=== PATIENT | female | born 1980 | race Caucasian/White ===

== ENCOUNTER → 2018-05-15 12:52 | Outpatient (CLI) | payer BC, SELFPAY ==
--- NOTE | 2018-05-15 13:00 | XR_ITS ---
XR chest 2V HISTORY: ITS.REASON: RECURRENT RESPIRATORY INFECTION ORDERING PHYSICIAN: Davon Garcia MD PATIENT AGE: 37 years COMPARISON: None FINDINGS: The cardiomediastinal silhouette and pulmonary vascularity are within normal limits. The lungs are clear without infiltrates, suspicious nodules, or pleural effusions. Breast implants are noted. No acute bony abnormalities. IMPRESSION: Negative chest, no acute finding
[2018-05-15 14:03] LABS: Basophils % 0.5 % (0.1-2.0); Eosinophils # 0.3 K/mm3 (0.0-0.4); Eosinophils % 3.1 % (0.1-12.0); Hemoglobin 13.6 g/dL (12.2-16.2); Lymphocytes # 1.4 K/mm3 (0.7-4.5); Lymphocytes % 17.2 K/mm3 (10-50); Mean Corpuscular HGB Conc 31.8 g/dL (31.8-35.4); Mean Corpuscular Hemoglobin 30.6 pg (27.0-31.2); Mean Corpuscular Volume 96.3 fl (81-99); Mean Platelet Volume 6.7 fl (7.4-10.4); Monocytes # 0.6 K/mm3 (0.1-1.0); Monocytes % 6.6 % (1.7-9.3); Neutrophils # 6.1 K/mm3 (1.8-7.8); Neutrophils % 72.6 % (37.0-80.0); Platelet Count 411 K/mm3 (142-424); Red Blood Count 4.46 M/mm3 (4.20-5.40); Red Cell Distribution Width 12.4 % (11.5-17.5); White Blood Count 8.4 K/mm3 (4.8-10.8)
[2018-05-15 15:51] LABS: Alanine Aminotransferase 23 U/L (12-78); Albumin Level 3.7 gm/dL (3.4-5.0); Albumin/Globulin Ratio 1.2 (1.1-1.8); Alkaline Phosphatase 87 U/L (46-116); Anion Gap 13.6 mEq/L (5-15); Aspartate Amino Transferase 12 U/L (15-37); Bilirubin,Total 0.3 mg/dL (0.2-1.0); Blood Urea Nitrogen 8 mg/dL (7-18); Calcium 8.6 mg/dL (8.5-10.1); Carbon Dioxide 27 mmol/L (21.0-32.0); Chloride 106 mmol/L (98-107); Creatinine,Serum 0.85 mg/dL (0.55-1.02); Estimated Glomerular Filt Rate 74 ml/min (>60); GFR (African American) 90 ML/MIN (>60); Glucose 77 mg/dL (74-106); Potassium 4.6 mmoL/L (3.5-5.1); Sodium 142 mmol/L (136-145); T4 (Thyroxine) 5.7 ug/dl (4.7-13.3); Thyroid Stimulating Hormone 1.91 uIU/ml (0.358-3.740); Total Protein,Serum 6.7 gm/dL (6.4-8.2); Triiodothryronine (T3) Uptake 35 % (31-39)
[2018-05-17 13:21] LABS: FSH 11.2 mIU/mL (.); LH 5.1 mIU/mL (.)
== END ==
PROVIDERS: PCP Internal Medicine Adolescent Medicine; Visit Provider Internal Medicine Adolescent Medicine
DX: J98.8 Other specified respiratory disorders (principal)
CPT/HCPCS: 36415; 71046; 80053; 83001; 83002; 84436; 84443; 84479; 85025

== ENCOUNTER → 2018-05-24 14:26 | Outpatient (CLI) | payer BC, SELFPAY ==
--- NOTE | 2018-05-24 14:34 | XR_ITS ---
XR clavicle LT CLINICAL INDICATION: ITS.REASON: LEFT CLAVICLE PAIN ORDERING PHYSICIAN: Davon Garcia MD PATIENT AGE: 37 years Comparison: None FINDINGS: No bony or joint abnormality evident. No fracture or dislocation. No lytic or blastic change IMPRESSION: Negative left clavicle
== END ==
PROVIDERS: PCP Internal Medicine Adolescent Medicine; Visit Provider Internal Medicine Adolescent Medicine
DX: M89.8X1 Other specified disorders of bone, shoulder (principal)
CPT/HCPCS: 73000

== ENCOUNTER → 2019-02-13 13:06 | Outpatient (CLI) | payer BC, SELFPAY ==
[2019-02-13 13:39] LABS: Basophils % 0.6 % (0.1-2.0); Eosinophils # 0.3 K/mm3 (0.0-0.4); Eosinophils % 3.6 % (0.1-12.0); Hematocrit 43.1 % (37.0-47.0); Hemoglobin 14.6 g/dL (12.2-16.2); Lymphocytes # 1.7 K/mm3 (0.7-4.5); Mean Corpuscular HGB Conc 33.9 g/dL (31.8-35.4); Mean Corpuscular Volume 91.5 fl (81-99); Mean Platelet Volume 6.7 fl (7.4-10.4); Monocytes # 0.5 K/mm3 (0.1-1.0); Monocytes % 6.3 % (1.7-9.3); Neutrophils % 66.6 % (37.0-80.0); Platelet Count 393 K/mm3 (142-424); Red Blood Count 4.72 M/mm3 (4.20-5.40); Red Cell Distribution Width 12.3 % (11.5-17.5); White Blood Count 7.4 K/mm3 (4.8-10.8)
[2019-02-13 13:46] LABS: Glucose,Fasting 126 mg/dL (60-105)
[2019-02-13 14:17] LABS: Hemoglobin A1C 5.1 % (0.0-7.0)
[2019-02-13 15:14] LABS: Glucose 1 Hour 168 mg/dL (74-106)
[2019-02-13 15:26] LABS: Anion Gap 13.1 mEq/L (5-15); Blood Urea Nitrogen 10 mg/dL (7-18); Carbon Dioxide 29 mmol/L (21.0-32.0); Chloride 103 mmol/L (98-107); Creatinine,Serum 0.82 mg/dL (0.55-1.02); Estimated Glomerular Filt Rate 77 ml/min (>60); Free Thyroxine Index 1.6 ug/dL (5.93-13.13); GFR (African American) 93 ML/MIN (>60); Glucose 122 mg/dL (74-106); Potassium 4.1 mmoL/L (3.5-5.1); Sodium 141 mmol/L (136-145); T4 (Thyroxine) 4.8 ug/dl (4.7-13.3); Thyroid Stimulating Hormone 2.83 uIU/ml (0.358-3.740); Triiodothryronine (T3) Uptake 33 % (31-39)
[2019-02-13 16:01] LABS: HCG Qualitative, Serum Negative (Negative)
[2019-02-13 16:12] LABS: Glucose 2 Hour 141 mg/dL (74-106)
[2019-02-13 17:15] LABS: Glucose 3 Hour 121 mg/dL (74-106)
[2019-02-13 17:55] LABS: Glucose 4 Hour 54 mg/dL (74-106)
[2019-02-14 18:44] LABS: FSH 13.8 mIU/mL (.)
== END ==
PROVIDERS: Visit Provider Internal Medicine Adolescent Medicine
DX: N91.2 Amenorrhea, unspecified (principal); R73.9 Hyperglycemia, unspecified
CPT/HCPCS: 36415; 80048; 82951; 83001; 83002; 83036; 83525; 84436; 84443; 84479; 84703; 85025

== ENCOUNTER 2019-07-01 13:56 | Outpatient (RCR) | payer BC, SELFPAY ==
--- NOTE | 2019-07-01 15:17 | HMH.PTOPEV ---
PT Outpatient Evaluation Rehab PT Outpatient Evaluation Start: 07/01/19 14:23 Freq: Status: Active Protocol: Document 07/01/19 14:40 PWCICI (Rec: 07/01/19 15:17 PWCICI [id number]) Electronically Signed By Nils Santana, PT 07/01/19 14:40 Outpatient Therapy Subjective History Subjective History This is the initial Physical Therapy evaluation for Melina Garza. Pt is a 38 y/o female referred to PT for c/o R sided LBP w/ some intermittant RLE/hip pain. Pt reports pain began insidiously ~ 3 months ago. Pt reports in last week pain has significantly increased. Pt reports she has some pain shooting in inguinal fold and lateral side of thigh but not past knee. Chief Complaint Pain Symptom Type Ache,Throb,Sharp Symptoms Relieved By Rest/Positioning,Ice Symptoms Aggravated By Sitting,Standing,Bending/ Stooping,Physical Activity Prior Functional Limitations None Current Functional Limitations Driving,Standing,Sitting, Recreation Activity,Bending/ Stooping Symptom Description Constant but Variable Level of pain today (0-10) 2 Pain scale - at its best (0-10) 2 Pain scale - at its worst (0-10) 8 Lumbopelvic Eval Posture Lumbar Spine Posture Standing Position Flattened Assistive device Assistive Devices None / NA Palapation tenderness right thoracic spinal tenderness No lumbar spinal tenderness Yes: PSIS paraspinal tenderness Yes: L2-5 buttock tenderness No tenderness over symphysis pubis No Lumbar/Sacral Palpation Findings Tenderness,Trigger Point, Muscle Guarding Accessory Movement L3 right L4 right L5 right S1 right Range of Motion Lumbar Spine Active Flexion Range of 55 w/ pain Motion (degrees) Lumbar Spine Active Extension Range of 5 w/ pain Motion (degrees) Left Lumbar Spine Lateral Flexion Active 20 w/ pain Range of Motion (degrees) Right Lumbar Spine Lateral Flexion 20 w/ pain Active Range of Motion (degrees) Lumbar Spine ROM Limitations Pain DTR Rt Patellar 2+ Lt Patellar 2+ Rt Gastroc/Soleus 1+ Lt Gastroc/So
== END 2019-07-01 13:59 | disposition home or self-care (01) ==
LOC: PT 13:56
PROVIDERS: Visit Provider Internal Medicine Adolescent Medicine
DX: M54.41 Lumbago with sciatica, right side (principal)
CPT/HCPCS: 97010; 97014; 97033; 97110; 97163; G0283

== ENCOUNTER → 2019-12-10 08:24 | Outpatient (CLI) | payer BC, SELFPAY ==
--- NOTE | 2019-12-10 08:28 | MM_ITS ---
PROCEDURE: MM DIG SCREENING MAMM BI W/CAD Digital Breast Tomosynthesis Included CLINICAL INDICATION: SCREENING There is a history of breast cancer patient's maternal grandmother and mother, the mother diagnosed after menopause. COMPARISON: No exams were available for comparison TECHNIQUE: Standard CC and MLO images and 3D Tomosynthesis was obtained. R2 CAD reviewed. FINDINGS: Moderate scattered fibroglandular densities are seen throughout both breasts. The findings are bilateral and symmetrical. Pool images were reviewed and there is no new or suspicious lesion in either breast. There are no suspicious microcalcifications. IMPRESSION: Moderate diffuse breast density with no suspicious lesions seen BI-RAD Category: 1 Negative FOLLOW-UP: 1YR 1 Year Follow-up (A letter has been sent to the patient regarding results of the study.) Dictated by: Dr. Tip Whitten MD 12/11/2019 14:[address] Tip Whitten MD in [place] 12/11/2019 14:11
[2019-12-10 09:15] LABS: Basophils # 0.1 K/mm3 (0-0.2); Basophils % 0.8 % (0.1-2.0); Eosinophils # 0.4 K/mm3 (0.0-0.4); Eosinophils % 6.4 % (0.1-12.0); Hemoglobin 13.5 g/dL (12.2-16.2); Lymphocytes # 2.1 K/mm3 (0.7-4.5); Lymphocytes % 30.5 % (10-50); Mean Corpuscular Hemoglobin 30.8 pg (27.0-31.2); Mean Corpuscular Volume 96.1 fl (81-99); Mean Platelet Volume 7.2 fl (7.4-10.4); Monocytes # 0.4 K/mm3 (0.1-1.0); Monocytes % 5.1 % (1.7-9.3); Neutrophils % 57.3 % (37.0-80.0); Platelet Count 427 K/mm3 (142-424); Red Blood Count 4.37 M/mm3 (4.20-5.40); Red Cell Distribution Width 12.9 % (11.5-17.5); White Blood Count 6.9 K/mm3 (4.8-10.8)
[2019-12-10 09:58] LABS: Chloride 108 mmol/L (98-107)
[2019-12-10 09:59] LABS: Potassium 4.1 mmoL/L (3.5-5.1); Sodium 139 mmol/L (136-145)
[2019-12-10 10:01] LABS: Alanine Aminotransferase 16 U/L (12-78); Aspartate Amino Transferase 25 U/L (14-36); Blood Urea Nitrogen 10 mg/dl (7-17); Estimated Glomerular Filt Rate 79 ml/min (>60); GFR (African American) 96 ML/MIN (>60)
[2019-12-10 10:02] LABS: Albumin Level 4.1 g/dl (3.5-5.0); Albumin/Globulin Ratio 1.6 (1.1-1.8); Alkaline Phosphatase 77 U/L (38-126); Anion Gap 9.1 mEq/L (5-15); Calcium 9.2 mg/dl (8.4-10.2); Carbon Dioxide 26 mmol/L (22.0-30.0); Chol/HDL Ratio 3.7 (1-3.5); Cholesterol 204 mg/dl (140-200); Globulin 2.6 g/dL (1.3-3.2); Glucose 85 mg/dl (74-100); HDL Cholesterol 55 mg/dl (40-60); Total Protein,Serum 6.7 g/dl (6.3-8.2); Triglycerides 381 mg/dl (30-150); VLDL Cholesterol 76 mg/dL (0-40)
[2019-12-10 10:08] LABS: Bilirubin,Total < 0.1 mg/dl (0.2-1.3)
[2019-12-10 10:13] LABS: Direct LDL Cholesterol 109.99 mg/dL (100-129)
[2019-12-10 10:33] LABS: Thyroid Stimulating Hormone 3.73 uIU/mL (0.465-4.68)
[2019-12-11 13:17] LABS: FSH 12.3 mIU/mL (.); LH 6.5 mIU/mL (.)
[2019-12-13 06:03] LABS: Estrogen 99 pg/mL (.)
== END ==
PROVIDERS: PCP Internal Medicine Adolescent Medicine; Visit Provider Nurse Practitioner Family
DX: Z12.31 Encounter for screening mammogram for malignant neoplasm of breast (principal); N92.6 Irregular menstruation, unspecified; R73.9 Hyperglycemia, unspecified; F41.9 Anxiety disorder, unspecified
CPT/HCPCS: 36415; 77063; 77067; 80053; 80061; 82533; 82672; 83001; 83002; 84443; 85025

== ENCOUNTER 2020-08-07 15:58 | Emergency (ER) | payer BC, SELFPAY ==
[2020-08-07 16:15] VITALS: BP 122/76; PULSE 80; RESP 18; TEMP 36.9; O2SAT 98; BMI 24.7
--- NOTE | 2020-08-07 16:30 | HMH.EDUTC ---
[facility] [place] Disposition Clinical Impression: COVID-19 virus test result unknown Nausea & vomiting Qualifiers: Vomiting type: unspecified Vomiting Intractability: non-intractable Qualified Code(s): R11.2 - Nausea with vomiting, unspecified Disposition: Home, Self-Care Condition on Discharge: Good Instructions: DI for Nausea -- Adult Additional Instructions: Monitor temperature. Seek treatment if fever develops. Follow-up immediately if new or worse symptoms worsen or no noticeable improvement over 48 hours. Increase fluids such as water, Gatorade, Powerade, juice or Pedialyte with limited formula/dietary in children No food is okay as long as you are drinking. Once ready to eat start bland such as bananas, rice, applesauce, toast. Contagious until no diarrhea, vomiting, fever times 48 hours without medication Avoid antidiarrheals unless told otherwise. Best to let the virus run its course. Follow-up immediately for new or worsening symptoms or no noticeable improvement over the next 48 hours. stop metformin till sunday and call pcp Referrals: Davon Garcia MD [Primary Care Provider] - Time of Disposition: 16:48 Medical Decision Making - Cory Inquiry Pt receiving controlled substance: No Vital Signs: 08/07/20 16:15 Temperature 98.4 F Temperature Source Oral Pulse Rate [Right Brachial] 80 Respiratory Rate 18 Blood Pressure [Right Arm] 122/76 Blood Pressure Mean [Right Arm] 91 Blood Pressure Source [Right Arm] Automatic Cuff Blood Pressure Position [Right Arm] Sitting 02 Sat by Pulse Oximetry 98 Oxygen Delivery Method Room Air [facility] [place] HPI - General Chief complaint: Urgent Treatment Center Stated complaint: Headache, diarrhea, nausea Time Seen by Provider: 08/07/20 16:44 Mode of Arrival: Ambulatory Source of Information: Patient Limitations: No Limitations Description of Symptoms (Recalled from Triage Doc. by RN): PATIENT C/O HEADACHE, NAUSEA, AND DIARRHEA X 1 WEEK HEENT Symptoms (Recalled from RN notes): No Resp Symptoms (Recalled from RN notes): No Skin Symptoms (Recalled from RN notes): No MS Symptoms (Recalled from RN notes): No Functional Status (Recalled from RN notes): WNL - History of Present Illness Provider Complaint: 40 yr old female presents for headache, nausea, and loose stool x 1 week. - Related Data Home Medications Medication Instructions Recorded Confirmed Metformin HCl 500 mg PO BID 08/07/20 08/07/20 Sertraline HCl [Zoloft] 25 mg PO DAILY 08/07/20 08/07/20 Allergies Allergy/AdvReac Type Severity Reaction Status Date / Time No Known Allergies Allergy Verified 08/28/19 11:09 - Worker's Comp Is this a Worker's Comp case?: No [facility] History - Hepatitis A Screen Drug use history?: No High risk sexual behaviors?: No History of sexually transmitted infection?: No Currently employed?: No Childcare worker?: No Do you have indoor plumbing?: Yes Do you have electricity?: Yes Attestation statement:: This patient has been screened for Hepatitis A risk factors. I have reviewed the patient's past medical history: Yes 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: Denies:: Diabetes Mellitus Type 2, Seizures Other 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: Reports: Hypothyroidism Comment: h/o pneumonia Other Surgeries: Yes: Other Amputation: No Fractures: No Comment: Lasik - Social History Smoking Status: Current some day smoker Tobacco Type: cigarettes Alcohol Intake: never Alcohol Intake Frequency:: 0-2 drinks per day Substance Use Type: denies use Occupational Status: other Housing: house Household Members: family Family Hx:: Cancer, Diabetes, Hypertension, Stroke, Thyroid Disorder ROS Obtained: Yes Systems reviewed as appropriate & no additional complaints - Constitutional Constitutional: Reports system reviewed and no additional complaints, except as docu, Denies fever(s) - Eyes Eyes: Reports system reviewed and no additional complaints, except as docu, Denies blurry vision - ENT Ears, Nose, Mouth, an
[2020-08-07 16:53] VITALS: BP 122/76; PULSE 80; RESP 18; TEMP 36.9; O2SAT 98
[2020-08-09 10:10] LABS: Covid-19 Nasal PCR Sendout UK Not Detected
== END 2020-08-07 16:55 | disposition home or self-care (01) ==
PROVIDERS: Emergency Provider Nurse Practitioner Family; PCP Internal Medicine Adolescent Medicine
DX: Z20.828 Contact with and (suspected) exposure to other viral communicable diseases (principal); E03.9 Hypothyroidism, unspecified; F17.210 Nicotine dependence, cigarettes, uncomplicated
CPT/HCPCS: 99201; U0003

== ENCOUNTER 2020-08-22 16:02 | Emergency (ER) | payer BC, SELFPAY ==
[2020-08-22 16:40] VITALS: BP 122/73; PULSE 76; RESP 14; TEMP 36.9; O2SAT 99; BMI 24.7
--- NOTE | 2020-08-22 17:01 | HMH.EDUTC ---
[facility] [place] Disposition Clinical Impression: COVID-19 virus test result unknown, Flu vaccine need Disposition: Home, Self-Care Condition on Discharge: Good Instructions: Preventing the Spread of Coronavirus Discharge Instructions Additional Instructions: isolate until test results known negative Referrals: Davon Garcia MD [Primary Care Provider] - Time of Disposition: 17:06 Medical Decision Making - Cory Inquiry Pt receiving controlled substance: No Vital Signs: 08/22/20 16:40 Temperature 98.4 F Temperature Source Oral Pulse Rate [Right Brachial] 76 Respiratory Rate 14 Blood Pressure [Right Arm] 122/73 Blood Pressure Mean [Right Arm] 89 Blood Pressure Source [Right Arm] Automatic Cuff Blood Pressure Position [Right Arm] Sitting 02 Sat by Pulse Oximetry 99 Oxygen Delivery Method Room Air Orders (Tests/Meds): ORDERS Category Date Time Status Covid-19 Nasal PCR ([facility]) Routine Lab 08/22/20 16:25 Ordered [facility] [place] HPI - General Chief complaint: Urgent Treatment Center Stated complaint: covid exposure Time Seen by Provider: 08/22/20 17:01 Mode of Arrival: Ambulatory Source of Information: Patient Limitations: No Limitations Description of Symptoms (Recalled from Triage Doc. by RN): PATIENT REQUESTING COVID TEST D/T EXPOSURE; DENIES SYMPTOMS HEENT Symptoms (Recalled from RN notes): No Resp Symptoms (Recalled from RN notes): No Skin Symptoms (Recalled from RN notes): No MS Symptoms (Recalled from RN notes): No Functional Status (Recalled from RN notes): WNL - History of Present Illness Provider Complaint: 40yr old male presnets for covid test. Has been exposed but denies symptoms. would like flu vaccine - Related Data Home Medications Medication Instructions Recorded Confirmed Sertraline HCl [Zoloft] 25 mg PO DAILY 08/07/20 08/20/20 Allergies Allergy/AdvReac Type Severity Reaction Status Date / Time No Known Allergies Allergy Verified 08/20/20 15:48 - Worker's Comp Is this a Worker's Comp case?: No [facility] History - Hepatitis A Screen Drug use history?: No High risk sexual behaviors?: No History of sexually transmitted infection?: No Currently employed?: No Childcare worker?: No Do you have indoor plumbing?: Yes Do you have electricity?: Yes Attestation statement:: This patient has been screened for Hepatitis A risk factors. I have reviewed the patient's past medical history: Yes 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: Denies:: Diabetes Mellitus Type 2, Seizures Other 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: Reports: Hypothyroidism Comment: h/o pneumonia Other Surgeries: Yes: Other Amputation: No Fractures: No Comment: Lasik - Social History Smoking Status: Current some day smoker Tobacco Type: cigarettes Alcohol Intake: never Alcohol Intake Frequency:: 0-2 drinks per day Substance Use Type: denies use Occupational Status: other Housing: house Household Members: family Family Hx:: Cancer, Diabetes, Hypertension, Stroke, Thyroid Disorder ROS Obtained: Yes Systems reviewed as appropriate & no additional complaints - Constitutional Constitutional: Reports system reviewed and no additional complaints, except as docu, Denies fever(s) - Eyes Eyes: Reports system reviewed and no additional complaints, except as docu, Denies blurry vision - ENT Ears, Nose, Mouth, and Throat: Reports system reviewed and no additional complaints, except as docu - Cardiovascular Cardiovascular: Reports system reviewed and no additional complaints, except as docu - Respiratory Respiratory: Yes system reviewed and no additional complaints, except as docu - Gastrointestinal Gastrointestingal: Reports: system reviewed and no additional complaints, except as docu - Genitourinary Male Genitourinary: Reports system reviewed and no additional complaints, except as docu - Musculoskeletal Musculoskeletal: Reports system reviewed and no additional complaints, except as docu - Integumentary/Breasts Skin/Breast: Reports system
[2020-08-22 17:17] VITALS: BP 122/73; PULSE 76; RESP 14; TEMP 36.9; O2SAT 99
== END 2020-08-22 17:20 | disposition home or self-care (01) ==
PROVIDERS: Emergency Provider Nurse Practitioner Family; PCP Internal Medicine Adolescent Medicine
DX: Z20.828 Contact with and (suspected) exposure to other viral communicable diseases (principal); E03.9 Hypothyroidism, unspecified; Z23 Encounter for immunization; F17.210 Nicotine dependence, cigarettes, uncomplicated
CPT/HCPCS: 90686; G0008; U0003

== ENCOUNTER 2020-08-27 14:41 | Emergency (ER) | payer BC, SELFPAY ==
[2020-08-27 14:50] VITALS: BP 148/70; PULSE 68; RESP 20; TEMP 36.8; O2SAT 95; BMI 24.7
[2020-08-27 15:24] LABS: UTC Influenza A Antigen Negative (Negative); UTC Influenza B Antigen Negative (Negative); UTC Strep Screen (Rapid) Negative (Negative)
--- NOTE | 2020-08-27 15:27 | HMH.EDUTC ---
[facility] [place] Clinical Impression: Viral syndrome, Exposure to COVID-19 virus Disposition: Home, Self-Care Condition on Discharge: Good Instructions: Preventing the Spread of Coronavirus Discharge Instructions Additional Instructions: Drink plenty of fluids. Take tylenol or ibuprofen for pain or fever. Take the medications as directed. Follow up with your regular doctor. GO TO THE ER FOR ANY WORSENING SYMPTOMS Referrals: Davon Garcia MD [Primary Care Provider] - Time of Disposition: 15:29 Medical Decision Making - Medical Records Medical records reviewed: No: I reviewed the patient's medical records. - Cory Inquiry Pt receiving controlled substance: No Vital Signs: 08/27/20 14:50 Temperature 98.2 F Temperature Source Oral Pulse Rate [Right Brachial] 68 Respiratory Rate 20 Blood Pressure [Right Arm] 148/70 H Blood Pressure Mean [Right Arm] 96 Blood Pressure Source [Right Arm] Automatic Cuff Blood Pressure Position [Right Arm] Sitting 02 Sat by Pulse Oximetry 95 Oxygen Delivery Method Room Air - Lab Data Lab results reviewed: Yes: I reviewed the patient's lab results. Lab Results 08/27/20 14:53: Influenza Type A Ag Negative, Influenza Type B Ag Negative 08/27/20 14:53: Strep Scn Rapid Clinic Negative Orders (Tests/Meds): ORDERS Category Date Time Status Covid-19 Nasal PCR Sendout Darin Stat Lab 08/27/20 14:54 Ordered Strep Screen Confirmation Stat Micro 08/27/20 14:53 Received [facility] [place] HPI - General Stated complaint: congested headache Time Seen by Provider: 08/27/20 15:00 Mode of Arrival: Ambulatory Source of Information: Patient Limitations: No Limitations Description of Symptoms (Recalled from Triage Doc. by RN): PATIENT C/O COUGH, CONGESTION, HEADACHE, FATIGUE, AND SORE THROAT SINCE YESTERDAY. SHE REPORTS SHE WAS EXPOSED TO COVID LAST SUNDAY AND TESTED NEGATIVE ON SUNDAY HEENT Symptoms (Recalled from RN notes): Yes Resp Symptoms (Recalled from RN notes): Yes Skin Symptoms (Recalled from RN notes): No MS Symptoms (Recalled from RN notes): No Functional Status (Recalled from RN notes): WNL - History of Present Illness Provider Complaint: She reports that for the past 3 days she has had sore throat, cough, fever, chills and body aches. She was exposed to covid-19 last week. - Related Data Home Medications Medication Instructions Recorded Confirmed Sertraline HCl [Zoloft] 25 mg PO DAILY 08/07/20 08/27/20 Allergies Allergy/AdvReac Type Severity Reaction Status Date / Time No Known Allergies Allergy Verified 08/20/20 15:48 - Worker's Comp Is this a Worker's Comp case?: No [facility] History - Hepatitis A Screen Drug use history?: No High risk sexual behaviors?: No History of sexually transmitted infection?: No Currently employed?: No Childcare worker?: No Do you have indoor plumbing?: Yes Do you have electricity?: Yes Attestation statement:: This patient has been screened for Hepatitis A risk factors. I have reviewed the patient's past medical history: Yes 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: Denies:: Diabetes Mellitus Type 2, Seizures Other 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: Reports: Hypothyroidism Comment: h/o pneumonia Other Surgeries: Yes: Other Amputation: No Fractures: No Comment: Lasik - Social History Smoking Status: Current some day smoker Tobacco Type: cigarettes Alcohol Intake: never Alcohol Intake Frequency:: 0-2 drinks per day Substance Use Type: denies use Occupational Status: other Housing: house Household Members: family Family Hx:: Cancer, Diabetes, Hypertension, Stroke, Thyroid Disorder ROS Obtained: Yes All systems reviewed & no additional complaints - Constitutional Constitutional: Reports system reviewed and no additional complaints, except as docu - Eyes Eyes: Reports system reviewed and no additional complaints, except as docu - ENT Ears, Nose, Mouth, and Throat: Reports system reviewed and no additional complaints, except as
[2020-08-27 15:30] VITALS: BP 148/70; PULSE 68; RESP 20; TEMP 36.8; O2SAT 95
[2020-08-29 09:00] LABS: Covid-19 Nasal PCR Sendout UK Not Detected
== END 2020-08-27 15:34 | disposition home or self-care (01) ==
PROVIDERS: Emergency Provider Nurse Practitioner Family; PCP Internal Medicine Adolescent Medicine
DX: Z20.828 Contact with and (suspected) exposure to other viral communicable diseases (principal); B34.9 Viral infection, unspecified; E03.9 Hypothyroidism, unspecified; F17.210 Nicotine dependence, cigarettes, uncomplicated
CPT/HCPCS: 87804; 87880; 99202; U0003

== ENCOUNTER 2020-11-02 09:20 | Emergency (ER) | payer BC, SELFPAY ==
[2020-11-02 09:25] VITALS: BP 137/54; PULSE 75; RESP 20; TEMP 37; O2SAT 96; BMI 25.8
--- NOTE | 2020-11-02 09:34 | HMH.EDUTC ---
[facility] [place] Disposition Clinical Impression: Sinusitis Qualifiers: Sinusitis location: unspecified location Chronicity: unspecified Qualified Code(s): J32.9 - Chronic sinusitis, unspecified Disposition: Home, Self-Care Condition on Discharge: Good Instructions: Sinusitis, DI for Sinusitis, DI for COVID-19 (Suspected or Confirmed ), Coronavirus Disease 2019, Guaifenesin, Azithromycin Additional Instructions: *Monitor Temp, Over the counter Motrin or Tylenol as directed/as needed Tylenol every 4 hours and Motrin every 6 hours (as long as your family doctor has told you that you can take it) for fever or pain. and straight to ER if unable to lower temp less than 101.0 after medication given *Warm salt water gargles may help to soothe the throat *Throat Lozenges *Warm fluids like tea with honey may help to soothe the throat *Sleep elevated *Humidifier/Vaporizer *Flonase 2 sprays in each nostril daily but be aware that it may take 2-3 days before you notice improvement Follow up IMMEDIATELY for new or worsening symptoms or no Noticeable improvement over the next 48-72 hours. 911 for difficulty breathing or swallowing You were tested for today for COVID19 your test result should be back in the next 24-48 hours, you may call to the [facility] to see if your test results are back in the next 48 hours [phone] [facility] hours are 9am-9pm You was given a handout with instructions for Self Quarantine and Self isolation for while you wait on test results and what to do if they are positive If you are positive the Health Dept will be contacting you also Prescriptions: Fluticasone Propionate [Flonase 50mcg nasal spray 16gm] 1 spr NS DAILY #1 bottle Transmission Status: Pending to [facility] # guaiFENesin [Mucinex 600mg tablet] 600 mg PO BID #20 [id number].er.[id number] Transmission Status: Pending to [facility] # Azithromycin [Z-Long 250mg Tab] 250 mg PO DIRECTED #6 tab Transmission Status: Pending to [facility] # Referrals: Davon Garcia MD [Primary Care Provider] - As needed Forms: Work/School Release Time of Disposition: 09:51 Medical Decision Making - Cory Inquiry Pt receiving controlled substance: No Cory was queried for this patient: No Vital Signs: 11/02/20 09:25 Temperature 98.6 F Temperature Source Oral Pulse Rate [Right Brachial] 75 Respiratory Rate 20 Blood Pressure [Right Arm] 137/54 L Blood Pressure Mean [Right Arm] 81 Blood Pressure Source [Right Arm] Automatic Cuff Blood Pressure Position [Right Arm] Sitting 02 Sat by Pulse Oximetry 96 Oxygen Delivery Method Room Air Orders (Tests/Meds): ORDERS Category Date Time Status Covid-19 Nasal PCR ([facility]) Routine Lab 11/02/20 09:37 Ordered [facility] [place] HPI - General Stated complaint: congestion, headache Time Seen by Provider: 11/02/20 09:36 Mode of Arrival: Ambulatory Source of Information: Patient Limitations: No Limitations Description of Symptoms (Recalled from Triage Doc. by RN): PATIENT C/O HEAD CONGESTION, HEADACHE, FATIGUE, AND NAUSEA SINCE SUNDAY HEENT Symptoms (Recalled from RN notes): Yes Resp Symptoms (Recalled from RN notes): No Skin Symptoms (Recalled from RN notes): No MS Symptoms (Recalled from RN notes): No Functional Status (Recalled from RN notes): WNL - History of Present Illness Provider Complaint: Patient state that she has been having sinus pain and pressure with headache, body aches and fatigue State that she feels like she has a sinus infection States that she had one like this in Aug and took a zpak and it cleared it up and now it is back - Related Data Home Medications Medication Instructions Recorded Confirmed Sertraline HCl [Zoloft] 25 mg PO DAILY 08/07/20 11/02/20 Previous Rx's Medication Instructions Recorded Azithromycin [Z-Long 250mg Tab] 250 mg PO DIRECTED #6 tab 11/02/20 Fluticasone Propionate [Flonase 1 spr NS DAILY #1 bottle 11/02/20 50mcg nasal spray 16gm] guaiFEN
[2020-11-02 09:50] VITALS: BP 137/54; PULSE 75; RESP 20; TEMP 37; O2SAT 96
--- NOTE | 2020-11-02 13:06 | PC.NURSE ---
PATIENT NOTIFIED OF POSITIVE COVID TEST AT THIS TIME
== END 2020-11-02 09:52 | disposition home or self-care (01) ==
PROVIDERS: Emergency Provider Nurse Practitioner; PCP Internal Medicine Adolescent Medicine
DX: U07.1 COVID-19 (principal); J32.9 Chronic sinusitis, unspecified; E03.9 Hypothyroidism, unspecified; F17.210 Nicotine dependence, cigarettes, uncomplicated
CPT/HCPCS: 99202; G0463; U0003

== ENCOUNTER → 2021-03-09 10:13 | Outpatient (CLI) | payer BC, SELFPAY ==
[2021-03-09 11:07] LABS: Alanine Aminotransferase 13 U/L (12-78); Albumin Level 4.4 g/dl (3.5-5.0); Albumin/Globulin Ratio 1.8 (1.1-1.8); Alkaline Phosphatase 77 U/L (38-126); Aspartate Amino Transferase 23 U/L (14-36); Bilirubin,Total 0.3 mg/dl (0.2-1.3); Blood Urea Nitrogen 11 mg/dl (7-17); Calcium 9.4 mg/dl (8.4-10.2); Carbon Dioxide 28 mmol/L (22.0-30.0); Chloride 106 mmol/L (98-107); Chol/HDL Ratio 3.8 (1-3.5); Cholesterol 212 mg/dl (140-200); Estimated Glomerular Filt Rate 92 ml/min (>60); GFR (African American) 111 ML/MIN (>60); Globulin 2.4 g/dL (1.3-3.2); Glucose 83 mg/dl (74-100); HDL Cholesterol 56 mg/dl (40-60); Sodium 138 mmol/L (136-145); Total Protein,Serum 6.8 g/dl (6.3-8.2); Triglycerides 235 mg/dl (30-150); VLDL Cholesterol 47 mg/dL (0-40)
[2021-03-09 11:19] LABS: Direct LDL Cholesterol 101.62 mg/dL (100-129)
[2021-03-09 11:26] LABS: Free Thyroxine Index 1.3 ug/dL (5.93-13.13); T4 (Thyroxine) 4.2 ug/dl (5.53-11.0); Triiodothryronine (T3) Uptake 32 % (23.5-40.5)
[2021-03-09 11:36] LABS: Basophils # 0.1 K/mm3 (0-0.2); Basophils % 0.8 % (0.1-2.0); Eosinophils # 0.3 K/mm3 (0.0-0.4); Eosinophils % 4.3 % (0.1-12.0); Hematocrit 41.4 % (37.0-47.0); Hemoglobin 13.9 g/dL (12.2-16.2); Lymphocytes # 1.5 K/mm3 (0.7-4.5); Lymphocytes % 24.4 % (10-50); Mean Corpuscular HGB Conc 33.5 g/dL (31.8-35.4); Mean Corpuscular Hemoglobin 31.5 pg (27.0-31.2); Monocytes # 0.4 K/mm3 (0.1-1.0); Monocytes % 7.2 % (1.7-9.3); Neutrophils # 3.9 K/mm3 (1.8-7.8); Neutrophils % 63.3 % (37.0-80.0); Platelet Count 330 K/mm3 (142-424); Red Cell Distribution Width 13.1 % (11.5-17.5); White Blood Count 6.2 K/mm3 (4.8-10.8)
[2021-03-09 11:39] LABS: Thyroid Stimulating Hormone 2.05 uIU/mL (0.465-4.68)
[2021-03-09 14:51] LABS: Hemoglobin A1C 5.1 % (4.0-6.0)
[2021-03-09 14:58] LABS: Anion Gap 8.8 mEq/L (5-15)
[2021-03-09 15:00] LABS: Potassium 4.8 mmoL/L (3.5-5.1)
== END ==
PROVIDERS: Visit Provider Internal Medicine Adolescent Medicine
DX: Z00.00 Encounter for general adult medical examination without abnormal findings (principal); N92.6 Irregular menstruation, unspecified; E03.9 Hypothyroidism, unspecified; Z80.3 Family history of malignant neoplasm of breast
CPT/HCPCS: 36415; 80053; 80061; 83036; 84436; 84443; 84479; 85025

== ENCOUNTER → 2021-04-04 14:41 | Outpatient (CLI) | payer BC, SELFPAY ==
--- NOTE | 2021-04-04 14:49 | US_ITS ---
PROCEDURE: US BREAST LT COMPLETE CLINICAL INDICATION: BREAST LUMP IN FEMALE COMPARISON: Diagnostic mammogram of the same date and screening mammogram of December 10, 2019 FINDINGS: No focal suspicious mass lesions are noted in the left breast. Left axillary lymph nodes measuring up to 1.4 centimeters are noted, demonstrate normal morphology and central fatty hilum. IMPRESSION: No focal suspicious mass lesions. Please see diagnostic mammogram report of the same date for further recommendations. Dictated by: Alexa Voss 04/05/2021 10:47 Alexa Voss in [place] 04/05/2021 10:47
--- NOTE | 2021-04-04 14:49 | MM_ITS ---
PROCEDURE: MM DIG MAMM BI DX W/CAD Digital Breast Tomosynthesis Included CLINICAL INDICATION: BREAST LUMP IN FEMALE COMPARISON: MG MM DIG SCREENING MAMM BI W/CAD from 12/10/2019 TECHNIQUE: Standard CC and MLO images and 3D Tomosynthesis was obtained. R2 CAD reviewed. FINDINGS: The breasts are composed of scattered fibroglandular tissue Focal asymmetric density is noted in the left central breast 6.5 centimeters from the nipple, seen on CC view and chiki images. Spot-compression and rolled image views demonstrate no evidence of asymmetry. No other focal dominant mass lesions, suspicious calcification or architectural distortion is noted. Corresponding ultrasound demonstrates no focal suspicious masses. IMPRESSION: Probably benign finding. BI-RAD Category: 3 Probably Benign Finding Short Term Follow-Up FOLLOW-UP: 3M 3 Month Follow-up with the diagnostic mammogram is recommended. (A letter has been sent to the patient regarding results of the study.) Dictated by: Alexa Voss 04/05/2021 10:46 Alexa Voss in [place] 04/05/2021 10:46
== END ==
PROVIDERS: PCP Internal Medicine Adolescent Medicine; Visit Provider Internal Medicine Adolescent Medicine
DX: N63.20 Unspecified lump in the left breast, unspecified quadrant (principal)
CPT/HCPCS: 76641; 77062; 77066; G0279

== ENCOUNTER → 2021-07-19 19:01 | Outpatient (CLI) | payer BC, SELFPAY | PROVIDERS: Visit Provider Nurse Practitioner Family | DX: Z20.822 Contact with and (suspected) exposure to COVID-19 (principal) | CPT/HCPCS: C9803; U0003; U0005 ==

== ENCOUNTER 2021-11-04 16:23 | Emergency (ER) | payer BC, SELFPAY ==
[2021-11-04 16:30] VITALS: BP 126/69; PULSE 86; RESP 18; TEMP 36.6; O2SAT 97; BMI 25.7
--- NOTE | 2021-11-04 16:49 | HMH.EDUTC ---
[place] Disposition Clinical Impression: URI (upper respiratory infection) Qualifiers: URI type: unspecified URI Qualified Code(s): J06.9 - Acute upper respiratory infection, unspecified Disposition: Home, Self-Care Condition on Discharge: Good Instructions: Sore Throat, DI for Sinusitis Additional Instructions: *Monitor Temp, Over the counter Motrin or Tylenol as directed/as needed Tylenol every 4 hours and Motrin every 6 hours (as long as your family doctor has told you that you can take it) for fever or pain. and straight to ER if unable to lower temp less than 101.0 after medication given *Warm salt water gargles may help to soothe the throat *Throat Lozenges *Warm fluids like tea with honey may help to soothe the throat *Sleep elevated *Humidifier/Vaporizer Your throat swab was sent for culture. Those results are typically sent to your primary care. Be sure to follow up in 2-3 days with your family doctor/primary care physician if no improvement so they can review those result and treat if necessary. If you don?t have a primary care doctor, I recommend you get one but in the mean time, you will have to return to a walk in clinic Follow up IMMEDIATELY for new or worsening symptoms or no Noticeable improvement over the next 48-72 hours. 911 for difficulty breathing or swallowing You were tested for today for COVID19 your test result should be back in the next 24-48 hours, you may checked for results on the [facility] [employer] [facility] if you have trouble seeing your results you may call support If you are positive someone from the hospital will be calling you Make sure to take your Vitamins Vit. C Vit D and Zinc if you can take them Prescriptions: methylPREDNISolone [Medrol 4mg tab] 4 mg PO DIRECTED #21 tab Transmission Status: Pending to [email or web address] # Azithromycin [Z-Long 250mg Tab] 250 mg PO DIRECTED #6 tab Transmission Status: Pending to [facility] # Referrals: Davon Garcia MD [Primary Care Provider] - As needed Forms: Work/School Release Time of Disposition: 16:58 Medical Decision Making - Cory Inquiry Pt receiving controlled substance: No Cory was queried for this patient: No Vital Signs: 11/04/21 16:30 Temperature 97.9 F Temperature Source Oral Pulse Rate [Right Brachial] 86 Respiratory Rate 18 Blood Pressure [Right Arm] 126/69 Blood Pressure Mean [Right Arm] 88 Blood Pressure Source [Right Arm] Automatic Cuff Blood Pressure Position [Right Arm] Sitting 02 Sat by Pulse Oximetry 97 Oxygen Delivery Method Room Air - Lab Data Lab results reviewed: Yes: I reviewed the patient's lab results. Orders (Tests/Meds): ORDERS Category Date Time Status Covid-19 Nasal PCR ([facility]) Routine Lab 11/04/21 16:36 Ordered [place] HPI - General Stated complaint: covid test/treated for symptoms Time Seen by Provider: 11/04/21 16:49 Mode of Arrival: Ambulatory Source of Information: Patient Limitations: No Limitations Description of Symptoms (Recalled from Triage Doc. by RN): PATIENT C/O CHEST CONGESTION, SORE THROAT, AND SOA THAT STARTED LAST NIGHT HEENT Symptoms (Recalled from RN notes): Yes Resp Symptoms (Recalled from RN notes): No Skin Symptoms (Recalled from RN notes): No MS Symptoms (Recalled from RN notes): No Functional Status (Recalled from RN notes): WNL - History of Present Illness Provider Complaint: Patient states that she has been having sinus issues for a week now but last night she started having worsening of sinus pressure, sore throat and chest congestion States that felt a little SOA last night when she laid down States today she is having pressure behind her eyes so she came in - Related Data Home Medications Medication Instructions Recorded Confirmed Sertraline HCl [Zoloft] 25 mg PO DAILY 08/07/20 11/04/21 Previous Rx's Medication Instructions Recorded Azithromycin [Z-Long 250mg Tab] 250 mg PO DIRECTED #6 tab 11/04/21 methylPR
[2021-11-04 17:01] VITALS: BP 126/69; PULSE 86; RESP 18; TEMP 36.6; O2SAT 97
[2021-11-04 19:01] LABS: UTC Influenza A Antigen Negative (Negative); UTC Influenza B Antigen Negative (Negative); UTC Strep Screen (Rapid) Negative (Negative)
== END 2021-11-04 17:05 | disposition home or self-care (01) ==
PROVIDERS: Emergency Provider Nurse Practitioner; PCP Internal Medicine Adolescent Medicine
DX: J06.9 Acute upper respiratory infection, unspecified (principal); J02.9 Acute pharyngitis, unspecified; Z20.822 Contact with and (suspected) exposure to COVID-19
CPT/HCPCS: 87804; 87880; 99203; C9803; G0463; U0003; U0005

== ENCOUNTER 2022-08-12 08:38 | Emergency (ER) | payer BC, SELFPAY ==
[2022-08-12 08:50] VITALS: BP 127/71; PULSE 76; RESP 19; TEMP 36.6; O2SAT 98; BMI 25.9
--- NOTE | 2022-08-12 09:07 | EXP.UTC ---
Discharge Plan Disposition Patient Disposition: Home, Self-Care Condition: Good Prescriptions Prescriptions: New azithromycin [Zithromax Z-Long] 250 mg tablet See Rx Instructions .ROUTE .COMPLEX 5 Days Qty: 6 0RF Rx Instructions: For 250 mg dose pack: take 500 mg today (day 1), then 250 mg for 4 days (days 2-5) benzonatate 100 mg capsule 100 mg PO TID PRN (Reason: cough) Qty: 30 0RF methylprednisolone [Medrol (Long)] 4 mg tablets,dose pack See Rx Instructions .Route .COMPLEX 6 Days Qty: 21 0RF Rx Instructions: taper pack; Referrals Follow up/Referrals: Davon Garcia MD [Primary Care Provider] - See instructions Activity Restrictions/Add. Instructions Additional Instructions/Restrictions: *Monitor Temp, Over the counter Motrin or Tylenol as directed/as needed Tylenol every 4 hours and Motrin every 6 hours (as long as your family doctor has told you that you can take it) for fever or pain. and straight to ER if unable to lower temp less than 101.0 after medication given *Warm salt water gargles may help to soothe the throat *Throat Lozenges? *Warm fluids like tea with honey may help to soothe the throat? *Sleep elevated *Humidifier/Vaporizer Your throat swab was sent for culture. Those results are typically sent to your primary care. Be sure to follow up in 2-3 days with your family doctor/primary care physician if no improvement so they can review those result and treat if necessary. If you don?t have a primary care doctor, I recommend you get one but in the mean time, you will have to return to a walk in clinic Follow up IMMEDIATELY for new or worsening symptoms or no Noticeable improvement over the next 48-72 hours. 911 for difficulty breathing or swallowing Clinical Impressions Clinical Impression: URI (upper respiratory infection) Qualifiers: URI type: unspecified URI Qualified Code(s): J06.9 - Acute upper respiratory infection, unspecified Stand Alone Forms Stand Alone Forms: Work/School Release Instructions Patient Instructions: Acute Bronchitis, DI for Sinusitis Discharge ED Provider: Marian Warner [facility] General Stated complaint: Congestion, Sore throat Mode of Arrival: Ambulatory Source of Information: Patient Limitations: No Limitations Time Seen by Provider: 08/12/22 09:07 Description of Symptoms (Recalled from Triage Doc. by RN): PATIENT C/O CONGESTION, COUGH AND SORE THROAT SINCE SUNDAY HEENT Symptoms (Recalled from RN notes): Yes Resp Symptoms (Recalled from RN notes): Yes Skin Symptoms (Recalled from RN notes): No MS Symptoms (Recalled from RN notes): No Functional Status (Recalled from RN notes): WNL History of Present Illness Provider Complaint: Patient states that she started feeling bad on Sun States that she was having sore throat and cough with sinus congestion and pressure and feels like it is trying to move into her chest States that today she was still having sore throat, feeling achy and having sinus congestion and chest congestion so she came in Related Data Previous Rx's Medication Instructions Recorded azithromycin 250 mg tablet See Rx Instructions PO .COMPLEX 5 08/12/22 (Zithromax Z-Long) days #6 tabs benzonatate 100 mg capsule 100 mg PO TID PRN cough #30 caps 08/12/22 methylprednisolone 4 mg tablets in See Rx Instructions .Route 08/12/22 a dose pack (Medrol (Long)) .COMPLEX 6 days #21 tabs Allergies Allergy/AdvReac Type Severity Reaction Status Date / Time No Known Allergies Allergy Verified 07/19/21 14:05 Worker's Comp Is this a Worker's Comp case?: No [facility] 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 (Updated 08/12/22 @ 09:24 by Marian Warner APRN) Diabetes mellitus, type 2 Social History (Updated 08/12/22 @ 09:05 by Kathryn Matt RN) Smoking Status: Current some day smoker tobacco type: cigarettes alcohol intake: never substance use type: denies use current occupational status: other Travel in the
[2022-08-12 09:19] LABS: UTC Influenza A Antigen Negative (Negative); UTC Influenza B Antigen Negative (Negative); UTC Strep Screen (Rapid) Negative (Negative)
[2022-08-12 09:21] VITALS: BP 127/71; PULSE 76; RESP 19; TEMP 36.6; O2SAT 98
== END 2022-08-12 09:27 | disposition home or self-care (01) ==
PROVIDERS: Emergency Provider Nurse Practitioner; PCP Internal Medicine Adolescent Medicine
DX: J06.9 Acute upper respiratory infection, unspecified (principal)
CPT/HCPCS: 87804; 87880; 99212; G0463

== ENCOUNTER 2022-09-03 13:18 | Emergency (ER) | payer BC, SELFPAY ==
[2022-09-03 13:36] VITALS: BP 140/83; PULSE 87; RESP 16; TEMP 37; O2SAT 99; BMI 25.9
[2022-09-03 13:41] LABS: UTC Strep Screen (Rapid) Negative (Negative)
--- NOTE | 2022-09-03 13:41 | EXP.UTC ---
Discharge Plan Disposition Patient Disposition: Home, Self-Care Condition: Good Prescriptions Prescriptions: New pseudoephedrine HCl [Sudafed 12 Hour] 120 mg tablet extended release 120 mg PO Q12H PRN (Reason: nasal congestion) Qty: 10 0RF benzonatate 100 mg capsule 100 mg PO TID PRN (Reason: cough) Qty: 30 0RF No Action azithromycin [Zithromax Z-Long] 250 mg tablet See Rx Instructions .ROUTE .COMPLEX 5 Days Qty: 6 0RF Rx Instructions: For 250 mg dose pack: take 500 mg today (day 1), then 250 mg for 4 days (days 2-5) benzonatate 100 mg capsule 100 mg PO TID PRN (Reason: cough) Qty: 30 0RF methylprednisolone [Medrol (Long)] 4 mg tablets,dose pack See Rx Instructions .Route .COMPLEX 6 Days Qty: 21 0RF Rx Instructions: taper pack; Referrals Follow up/Referrals: Davon Garcia MD [Primary Care Provider] - See instructions Activity Restrictions/Add. Instructions Additional Instructions/Restrictions: *Monitor Temp, Over the counter Motrin or Tylenol as directed/as needed Tylenol every 4 hours and Motrin every 6 hours (as long as your family doctor has told you that you can take it) for fever or pain. and straight to ER if unable to lower temp less than 101.0 after medication given *Warm salt water gargles may help to soothe the throat *Throat Lozenges? *Warm fluids like tea with honey may help to soothe the throat? *Sleep elevated *Humidifier/Vaporizer Take sudafed as prescribed Your throat swab was sent for culture. Those results are typically sent to your primary care. Be sure to follow up in 2-3 days with your family doctor/primary care physician if no improvement so they can review those result and treat if necessary. If you don?t have a primary care doctor, I recommend you get one but in the mean time, you will have to return to a walk in clinic Follow up IMMEDIATELY for new or worsening symptoms or no Noticeable improvement over the next 48-72 hours. 911 for difficulty breathing or swallowing Clinical Impressions Clinical Impression: URI (upper respiratory infection) Instructions Patient Instructions: Sore Throat, DI for Nasal Congestion Discharge ED Provider: [place] [facility] [place] General Stated complaint: congestion,cough,sore throat Mode of Arrival: Ambulatory Source of Information: Patient Limitations: No Limitations Time Seen by Provider: 09/03/22 13:41 Description of Symptoms (Recalled from Triage Doc. by RN): pt come sin with congestion, drainage, sore throat. symptoms began last night. pt states her children have been sick with strep and flu recently. HEENT Symptoms (Recalled from RN notes): Yes Resp Symptoms (Recalled from RN notes): Yes Skin Symptoms (Recalled from RN notes): No MS Symptoms (Recalled from RN notes): No Functional Status (Recalled from RN notes): n/a History of Present Illness Provider Complaint: Patient states that she started last night with sinus congestion and drainage in the back of her throat sore throat and cough States that her kids have had strep and flu and she was worried that she may have it now too Related Data Previous Rx's Medication Instructions Recorded azithromycin 250 mg tablet See Rx Instructions PO .COMPLEX 5 08/12/22 (Zithromax Z-Long) days #6 tabs benzonatate 100 mg capsule 100 mg PO TID PRN cough #30 caps 08/12/22 methylprednisolone 4 mg tablets in See Rx Instructions .Route 08/12/22 a dose pack (Medrol (Long)) .COMPLEX 6 days #21 tabs benzonatate 100 mg capsule 100 mg PO TID PRN cough #30 caps 09/03/22 pseudoephedrine HCl 120 mg 120 mg PO Q12H PRN nasal 09/03/22 tablet,extended release (Sudafed congestion #10 tabs 12 Hour) Allergies Allergy/AdvReac Type Severity Reaction Status Date / Time No Known Allergies Allergy Verified 09/03/22 13:38 Worker's Comp Is this a Worker's Comp case?: No [facility] Disclaimer: The information contained in this section may have been updat
[2022-09-03 13:42] LABS: UTC Influenza A Antigen Negative (Negative); UTC Influenza B Antigen Negative (Negative)
[2022-09-03 14:02] VITALS: BP 140/83; PULSE 87; RESP 16; TEMP 37
== END 2022-09-03 14:03 | disposition home or self-care (01) ==
PROVIDERS: Emergency Provider Nurse Practitioner; PCP Internal Medicine Adolescent Medicine
DX: J06.9 Acute upper respiratory infection, unspecified (principal)
CPT/HCPCS: 87804; 87880; 99212; G0463

== ENCOUNTER → 2022-09-13 09:12 | Outpatient (CLI) | payer BC, SELFPAY | PROVIDERS: PCP Nurse Practitioner Family; Visit Provider Nurse Practitioner Family | DX: R05.9 Cough, unspecified (principal) | CPT/HCPCS: C9803; U0003; U0005 ==

== ENCOUNTER 2023-06-02 11:18 | Emergency (ER) | payer BC, SELFPAY ==
[2023-06-02 11:18] VITALS: BP 122/76; PULSE 76; RESP 19; TEMP 36.9; O2SAT 98; BMI 26.6
--- NOTE | 2023-06-02 12:12 | EXP.UTC ---
Discharge Plan Disposition Patient Disposition: Home, Self-Care Condition: Good Prescriptions Prescriptions: New azithromycin [azithromycin] 250 mg tablet 250 mg PO DIRECTED Qty: 6 0RF Rx Instructions: Take two (2) tablets on day #1, then one (1) tablet day #2 thru #5 No Action amoxicillin-pot clavulanate 875-125 mg tablet 1 tab PO BID 7 Days Qty: 14 0RF pseudoephedrine HCl [Sudafed 12 Hour] 120 mg tablet extended release 120 mg PO Q12H PRN (Reason: nasal congestion) Qty: 10 0RF Referrals Follow up/Referrals: Davon Garcia MD [Primary Care Provider] - See instructions Activity Restrictions/Add. Instructions Additional Instructions/Restrictions: Start antibiotic patient to take as ordered for a full length of time even if you feel better. Sinus infections do not get better overnight. It may take 2-3 days to notice much improvement so be sure to use conservative measures as discussed for symptoms. Flonase 1 spray each nostril daily to help with nasal congestion, sinus and ear pressure/information Increase fluids Humidifier/vaporizer as needed Tylenol and ibuprofen as needed for fever or pain. If symptoms do not improve or get worse return or be seen in the ER Follow-up with primary care this week Clinical Impressions Clinical Impression: Sinusitis Qualifiers: Sinusitis location: maxillary Chronicity: acute Recurrence: non-recurrent Qualified Code(s): J01.00 - Acute maxillary sinusitis, unspecified Instructions Patient Instructions: DI for Sinusitis Discharge ED Provider: Yo ([facility] [facility] [place] Stated complaint: congestion Mode of Arrival: Ambulatory Source of Information: Patient Limitations: No Limitations Time Seen by Provider: 06/02/23 12:13 Description of Symptoms (Recalled from Triage Doc. by RN): Patient reports congestion, body aches, chills, cough and sinus pressure since Sunday. HEENT Symptoms (Recalled from RN notes): Yes Resp Symptoms (Recalled from RN notes): No Skin Symptoms (Recalled from RN notes): No MS Symptoms (Recalled from RN notes): No Functional Status (Recalled from RN notes): wnl History of Present Illness Provider Complaint: 42 yr old female presents for congestion, body aches, chills, cough and sinus pressure since Sunday. Related Data Previous Rx's Medication Instructions Recorded pseudoephedrine HCl 120 mg 120 mg PO Q12H PRN nasal 09/03/22 tablet,extended release (Sudafed congestion #10 tabs 12 Hour) amoxicillin 875 mg-potassium 1 tab PO BID 7 days #14 tabs 09/13/22 clavulanate 125 mg tablet azithromycin 250 mg tablet 250 mg PO DIRECTED #6 tabs 06/02/23 Allergies Allergy/AdvReac Type Severity Reaction Status Date / Time No Known Allergies Allergy Verified 09/13/22 08:59 Worker's Comp Is this a Worker's Comp case?: No [facility] Disclaimer: The information contained in this section may have been updated after the patient was seen, as this information can be updated by other users. 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 , [employer]) Diabetes mellitus, type 2 Social History , [employer]) Smoking Status: Current some day smoker tobacco type: cigarettes alcohol intake: never substance use type: denies use current occupational status: other Travel in the last 8 weeks: None household members: family housing: house ROS Obtained: Yes All systems reviewed & no additional complaints except as documented Constitutional Constitutional: Reports system reviewed and no additional complaints, except as documented, Reports as per HPI and Reports body ache Eyes Eyes: Reports system reviewed and no additional complaints, except as documented ENT Ears, Nose, Mouth, and Throat: Reports system reviewed and no additional complaints, except as documented, Reports as per HPI, Reports nasal congestion, Reports nasal discharge, Reports sinus javed
[2023-06-02 12:28] VITALS: BP 122/76; PULSE 76; RESP 19; TEMP 36.9; O2SAT 98
== END 2023-06-02 12:29 | disposition home or self-care (01) ==
PROVIDERS: Emergency Provider Nurse Practitioner Family; PCP Internal Medicine Adolescent Medicine
DX: J01.00 Acute maxillary sinusitis, unspecified (principal); R68.83 Chills (without fever); E11.9 Type 2 diabetes mellitus without complications; F17.210 Nicotine dependence, cigarettes, uncomplicated
CPT/HCPCS: 99212; 99214; G0463

== ENCOUNTER 2023-06-05 11:43 | Emergency (ER) | payer BC, SELFPAY ==
[2023-06-05 11:52] VITALS: BP 122/88; PULSE 80; RESP 16; TEMP 36.7; O2SAT 100; BMI 25.8
--- NOTE | 2023-06-05 12:06 | EXP.UTC ---
Discharge Plan Disposition Patient Disposition: Home, Self-Care Condition: Good Prescriptions Prescriptions: New benzonatate [benzonatate] 100 mg capsule 100 mg PO TIDP PRN (Reason: Cough) Qty: 30 0RF methylprednisolone 4 mg Tablets,Dose Pack 4 mg PO DIRECTED Qty: 21 0RF amoxicillin-pot clavulanate 875-125 mg Tablet 1 tab PO Q12H Qty: 20 0RF Discontinued azithromycin [azithromycin] 250 mg tablet 250 mg PO DIRECTED Qty: 6 0RF Rx Instructions: Take two (2) tablets on day #1, then one (1) tablet day #2 thru #5 No Action amoxicillin-pot clavulanate 875-125 mg tablet 1 tab PO BID 7 Days Qty: 14 0RF pseudoephedrine HCl [Sudafed 12 Hour] 120 mg tablet extended release 120 mg PO Q12H PRN (Reason: nasal congestion) Qty: 10 0RF Referrals Follow up/Referrals: Davon aGrcia MD [Primary Care Provider] - See instructions Activity Restrictions/Add. Instructions Additional Instructions/Restrictions: Drink plenty of fluids. Take tylenol or ibuprofen for pain or fever. Stop the azithromycin, start the new medications. Don't start the oral steroids (methylprednisone pack) until tomorrow, since you had the shot here today. Follow up with your regular doctor. GO TO THE ER FOR ANY WORSENING SYMPTOMS Clinical Impressions Clinical Impression: Sinusitis, Acute viral syndrome Stand Alone Forms Stand Alone Forms: Work/School Release Instructions Patient Instructions: DI for Sinusitis, DI for Viral Syndrome Discharge ED Provider: Jason Valentin [facility] [place] H[place] General Stated complaint: congested Mode of Arrival: Ambulatory Source of Information: Patient Limitations: No Limitations Time Seen by Provider: 06/05/23 12:06 Description of Symptoms (Recalled from Triage Doc. by RN): Pt arrived to [email or web address]] with c/o cough congestion and body aches since last week. Pt states that she was given a zpack last week and has not noticed any difference in her symptoms. HEENT Symptoms (Recalled from RN notes): No Resp Symptoms (Recalled from RN notes): Yes Skin Symptoms (Recalled from RN notes): No MS Symptoms (Recalled from RN notes): No Functional Status (Recalled from RN notes): na History of Present Illness Provider Complaint: She is back today with complaints of continuing to have sinus congestion and sore throat. She was here 3 days ago and prescribed a z-pack for sinus infection. She states that she is worse instead of better. Related Data Previous Rx's Medication Instructions Recorded pseudoephedrine HCl 120 mg 120 mg PO Q12H PRN nasal 09/03/22 tablet,extended release (Sudafed congestion #10 tabs 12 Hour) amoxicillin 875 mg-potassium 1 tab PO BID 7 days #14 tabs 09/13/22 clavulanate 125 mg tablet amoxicillin 875 mg-potassium 1 tab PO Q12H #20 tabs 06/05/23 clavulanate 125 mg tablet benzonatate 100 mg capsule 100 mg PO TIDP PRN Cough #30 caps 06/05/23 methylprednisolone 4 mg tablets in 4 mg PO DIRECTED #21 tabs 06/05/23 a dose pack Allergies Allergy/AdvReac Type Severity Reaction Status Date / Time No Known Allergies Allergy Verified 09/13/22 08:59 Worker's Comp Is this a Worker's Comp case?: No [facility] Disclaimer: The information contained in this section may have been updated after the patient was seen, as this information can be updated by other users. 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 (Reviewed 06/02/23 @ 12:20 by Dagmar Ram ([facility] [[email or web address]]), [employer]) Diabetes mellitus, type 2 Social History (Reviewed 06/02/23 @ 12:20 by Dagmar Ram ([facility] [[email or web address] [employer]) Smoking Status: Current some day smoker tobacco type: cigarettes alcohol intake: never substance use type: denies use current occupational status: other Travel in the last 8 weeks: None household members: family housing: house ROS Obtained: Yes All systems reviewed & no additional complaints except as documented Constitutional Constitutional: Reports poor appetite Eyes Eyes: Reports system reviewed and no ad
[2023-06-05 12:38] VITALS: BP 122/88; PULSE 80; RESP 16; TEMP 36.6; O2SAT 100
== END 2023-06-05 12:39 | disposition home or self-care (01) ==
PROVIDERS: Emergency Provider Nurse Practitioner Family; PCP Internal Medicine Adolescent Medicine
DX: J01.90 Acute sinusitis, unspecified (principal); B34.9 Viral infection, unspecified; F17.210 Nicotine dependence, cigarettes, uncomplicated; E11.9 Type 2 diabetes mellitus without complications
CPT/HCPCS: 96372; 99212; 99214; G0463

== ENCOUNTER 2023-07-26 16:30 | Outpatient (RCR) | payer BC, SELFPAY ==
--- NOTE | 2023-07-02 10:46 | HMH.PTOPEV ---
PT Outpatient Evaluation Rehab PT Outpatient Evaluation Start: 07/02/23 10:30 Freq: Status: Active Protocol: Document 07/02/23 10:31 IDANIA (Rec: 07/02/23 10:46 IDANIA [id number]) E-signed By Mika Carty, PT Outpatient Therapy Subjective History Subjective History Pt reports insidious onset LBP beginning ~6 months ago. Pt reports right > left sided LBP with referred pain in right glut/hip region. Pt reports ' it feels like it just needs to be popped.' Pt reports fairly constant LBP, no relief with ambulatory care coordinator. Pt reports increased s/s w/prolonged positioning. New diagnosis of cancer in past 12 No months? Chief Complaint Pain,Stiff Symptom Type Ache,Sharp,Dull Symptoms Relieved By OTC Meds Symptoms Aggravated By Sitting,Standing,Physical Activity,Lifting Prior Functional Limitations Housework,Desk Work/Reading, Standing,Sitting Current Functional Limitations Lifting,Housework,Desk Work/ Reading,Standing,Sitting Symptom Description Constant but Variable Level of pain today (0-10) 4 Pain scale - at its best (0-10) 4 Pain scale - at its worst (0-10) 6 Lumbopelvic Eval Posture Thoracic Spine Posture Standing Position Neutral Lumbar Spine Posture Standing Position Increased Lordosis Assistive device Assistive Devices None / NA Gait Observation General Gait Pattern Observation No Deviations/Normal Palapation tenderness left lumbar spinal tenderness Yes: 2/4 paraspinal tenderness Yes: 1-2/4 buttock tenderness No Lumbar/Sacral Palpation Findings Tenderness right lumbar spinal tenderness Yes: 3/4 paraspinal tenderness Yes: 3/4 buttock tenderness Yes: 2-3/4 Lumbar/Sacral Palpation Findings Tenderness Accessory Movement L-spine Vertebrae Accessory Movements [facility] [place] that Elicit Symptoms L4 right L5 right Range of Motion Lumbar Spine Active Flexion Range of 0-30 Motion (degrees) Lumbar Spine Active Extension Range of 0-25 Motion (degrees) Left Lumbar Spine Lateral Flexion Active 0-45 Range of Motion (degrees) Right Lumbar Spine Lateral Flexion 0-40 Active Range of Motion (degrees) Lumbar Spine ROM Limitations Pain Manual Muscle Test Right Knee Extension Strength Grade 5 Normal Knee Flexion Strength Grade 5 Normal Hip Flexion Strength Grade 4 Good Hip Abduction Strength Grade 4 Good Hip Adduction Strength Grade 4 Good Hip External Rotation Strength Grade 4 Good Hip Internal Rotation Strength Grade 4- Good- Extensor Hallucis Longus Strength Grade 5 Normal Ankle Dorsiflexion Strength Grade 5 Normal Gastronemius/Soleus Strength Grade 5 Normal Left Knee Extension Strength Grade 5 Normal Knee Flexion Strength Grade 5 Normal Hip Flexion Strength Grade 5 Normal Hip Abduction Strength Grade 4 Good Hip Adduction Strength Grade 5 Normal Hip External Rotation Strength Grade 4- Good- Hip Internal Rotation Strength Grade 4- Good- Extensor Hallucis Longus Strength Grade 5 Normal Ankle Dorsiflexion Strength Grade 5 Normal Gastronemius/Soleus Strength Grade 5 Normal Special Tests Hip Piriformis Test Negative Left,Negative Right Sciatic Nerve Tension Test Negative Left,Negative Right Lumbar Long [place] Distraction Test/Manual reassess Traction Oswestry Index Section 1 Pain Intensity The pain is moderate and does not vary much Section 2 Personal Care (Washing,Dresing) increase the pain, but I manage not to change my way of doing it Section 3 Lifting I can lift heavy weights, but it gives me extra pain Section 4 Walking I have some pain when walking but it does not increase with distance Section 5 Sitting I can sit in my favorite chair for as long as I like Section 6 Standing I have some pain on standing, but it does not increase with time Section 7 Sleeping Because of my pain, my normal night's sleep is less than 6 hours sleep Section 8 Social Life My social life is normal but increases the degree of pain Section 9 Traveling I get some pain when traveling , but none of my usual forms of travel m Section 10 Changing Degreee of Pain My pain is neither getting better or worse Score and Risk Level Oswestry Sc 16 Oswestry Risk Level Moderate Disability Outpatient Therapy Assessment Impairments Problems/Impairmments Palpation Tenderness,Impaired Range of Motion,Impaired Strength,Impaired Standing, Impaired Sitting,Impaired Household Care,Subjective C/O Pain,Impaired Self Care/Self Management Prognosis Rehab Potential Good Clinical Impression Consistent with Diagnosis Yes Short Term Goals Number of Weeks 4 Decreased Palpation Tenderness Yes: 1-2/4 lumbar paraspinals, glut mm Increase Range of Motion Yes: 75% of WFL LUMBAR AROM Increase Strength Yes: 4/5 B/L HIP MM, CORE MM Increase Ability to Stand Yes: 30MIN Increase Ability to Sit Yes: 30MIN Improve Ability For Household Care Yes: 30MIN Decrease Subjective C/O Pain Yes: 3/10 W/ABOVE ACTIVITIES Patient to be Ind w/ HEP Yes [facility]iary Goals Number of Weeks 6-8 Decreased Palpation Tenderness Yes: 0-1/4 LUMBAR PARASPINALS, GLUT/HIP MM Increase Range of Motion Yes: WFL LUMBAR AROM Increase Strength Yes: 4+-5/5 B/L HIP, CORE MM Increase Ability to Stand Yes: 60MIN Increase Ability to Sit Yes: 60MIN Improve Ability For Household Care Yes: 60MIN Improve Tolerance to Work Activities Yes: WFL FULL-DUTY Decrease Subjective C/O Pain Yes: 0-2/10 W/ABOVE ACTIVITIES Patient to be Ind w/ Advanced HEP Yes Outpatient Therapy Plan of Care Treatment Plan May Include Therapeutic Exercise Including Home Yes Exercise Program Manual Therapy Techniques Yes Neuromuscular Re-education Yes Therapeutic Activities to Return to Yes Previous Functional/Work Level ADL/Self Care Education Yes Mechanical Traction Yes Dry Needling Yes Thermal Modalities Yes Electrical Stimulation Yes Ultrasound/Phonophoresis Yes Iontophoresis Yes Orthotics/Bracing/Splinting Yes Vasopneumatic Compression Pump Yes Eval/Re-Eval Yes Frequency Times per week 2-3 Duration Number of Weeks 6-8 Addendums This patient is a candidate for social No or vocational rehab? Patient/Guardian verbally acknowledges Yes understanding of treatment program and consents to further treatment? Patient/Guardian verbally acknowledges Yes understanding of diagnosis, prognosis and goals for treatment? Eval Complexity PT Charges 14070 - Moderate Complexity Shoulder/Elbow Eval Shoulder Objective Measurements Elbow Objective Measurements PHYSICIAN CERTIFICATION: I certify the specified therapy services for Melina Garza are required, authorized, and reviewed every 30 days.
== END 2023-07-26 17:30 | disposition home or self-care (01) ==
LOC: PT 16:30
PROVIDERS: PCP Internal Medicine Adolescent Medicine; Visit Provider Nurse Practitioner Family
DX: M54.50 Low back pain, unspecified (principal)
CPT/HCPCS: 97010; 97014; 97110; 97140; 97163; G0283

== ENCOUNTER 2023-10-11 15:48 | Emergency (ER) | payer BC, SELFPAY ==
[2023-10-11 16:00] VITALS: BP 122/83; PULSE 82; RESP 20; TEMP 37.1; O2SAT 100; BMI 25.9
--- NOTE | 2023-10-11 16:23 | EXP.UTC ---
Discharge Plan Disposition Patient Disposition: Home, Self-Care Condition: Good Prescriptions Prescriptions: New azithromycin [Zithromax Z-Long] 250 mg tablet See Rx Instructions .ROUTE .COMPLEX 5 Days Qty: 6 0RF Rx Instructions: For 250 mg dose pack: take 500 mg today (day 1), then 250 mg for 4 days (days 2-5) methylprednisolone [Medrol (Long)] 4 mg tablets,dose pack See Rx Instructions .Route .COMPLEX 6 Days Qty: 21 0RF Rx Instructions: taper pack; No Action fluoxetine 10 mg capsule 10 mg PO DAILY Patient Comments: TAKE 1 CAPSULE BY MOUTH ONCE DAILY FOR 90 DAYS Referrals Follow up/Referrals: Davon Garcia MD [Primary Care Provider] - See instructions Activity Restrictions/Add. Instructions Additional Instructions/Restrictions: *Monitor Temp, Over the counter Motrin or Tylenol as directed/as needed Tylenol every 4 hours and Motrin every 6 hours (as long as your family doctor has told you that you can take it) for fever or pain. and straight to ER if unable to lower temp less than 101.0 after medication given *Warm salt water gargles may help to soothe the throat *Throat Lozenges? *Warm fluids like tea with honey may help to soothe the throat? *Sleep elevated *Humidifier/Vaporizer Your throat swab was sent for culture. Those results are typically sent to your primary care. Be sure to follow up in 2-3 days with your family doctor/primary care physician if no improvement so they can review those result and treat if necessary. If you don?t have a primary care doctor, I recommend you get one but in the mean time, you will have to return to a walk in clinic Follow up IMMEDIATELY for new or worsening symptoms or no Noticeable improvement over the next 48-72 hours. 911 for difficulty breathing or swallowing Clinical Impressions Clinical Impression: Pharyngitis Qualifiers: Pharyngitis/tonsillitis etiology: unspecified etiology Qualified Code(s): J02.9 - Acute pharyngitis, unspecified Instructions Patient Instructions: Sore Throat, Cough Discharge ED Provider: Marian Warner [facility] General Stated complaint: cough,abdominal pain Mode of Arrival: Ambulatory Source of Information: Patient Limitations: No Limitations Time Seen by Provider: 10/11/23 16:23 Description of Symptoms (Recalled from Triage Doc. by RN): PATIENT C/O SORE THROAT, LEFT EAR PAIN, COUGH AND NAUSEA THAT STARTED YESTERDAY HEENT Symptoms (Recalled from RN notes): Yes Resp Symptoms (Recalled from RN notes): Yes Skin Symptoms (Recalled from RN notes): No MS Symptoms (Recalled from RN notes): No Functional Status (Recalled from RN notes): WNL History of Present Illness Provider Complaint: Patient states that she has several family members that has strep throat and then yesterday she started having throat pain/redness and hurting when she would swallow or cough, pain and pressure in her left ear, and some nausea States that today she was still not feeling well and her throat was worse so she came in Related Data Home Medications Medication Instructions Recorded Confirmed fluoxetine 10 mg capsule 10 mg PO DAILY 10/11/23 10/11/23 Previous Rx's Medication Instructions Recorded azithromycin 250 mg tablet See Rx Instructions PO .COMPLEX 5 10/11/23 (Zithromax Z-Long) days #6 tabs methylprednisolone 4 mg tablets in See Rx Instructions .Route 10/11/23 a dose pack (Medrol (Long)) .COMPLEX 6 days #21 tabs Allergies Allergy/AdvReac Type Severity Reaction Status Date / Time No Known Allergies Allergy Verified 09/20/23 14:25 Worker's Comp Is this a Worker's Comp case?: No [facility] Disclaimer: The information contained in this section may have been updated after the patient was seen, as this information can be updated by other users. 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 Diabetes mellitus, type 2 Social History Smoking Status: Current some day smoker tobacco type: cigarettes alcohol intake: never substance use type: denies use current occupational status: other Travel in the last 8 weeks: None household members: family housing: house ROS Obtained: Yes All systems reviewed & no additional complaints except as documented and Yes Systems reviewed as appropriate & no additional complaints except as documented Constitutional Constitutional: Reports system reviewed and no additional complaints, except as documented, Reports as per HPI and Reports headache(s) ENT Ears, Nose, Mouth, and Throat: Reports system reviewed and no additional complaints, except as documented, Reports as per HPI, Reports otalgia, Reports headache(s), Reports nasal congestion, Reports sinus pressure and Reports sore throat Cardiovascular Cardiovascular: Reports system reviewed and no additional complaints, except as documented and Reports as per HPI Respiratory Respiratory: Reports system reviewed and no additional complaints, except as documented, Reports as per HPI and Reports cough Gastrointestinal Gastrointestingal: Reports system reviewed and no additional complaints, except as documented, as per HPI and nausea Neurologic Neurologic: Reports headache(s) Physical Exam General General appearance: alert and in no apparent distress ENT ENT exam: Present mucous membranes moist Expanded ENT Exam TM/Canal exam: Left TM: erythema Respiratory Respiratory exam: Present normal lung sounds bilaterally; Absent respiratory distress or wheezes Cardiovascular Cardiovascular exam: Present regular rate and normal heart sounds; Absent normal rhythm or bradycardia Neurological Exam Neurological exam: Present alert, oriented X3 and normal gait Medical Decision Making Coyr Inquiry Pt receiving controlled substance: No Cory was queried for this patient: No Vital Signs: 10/11/23 16:00 Temperature 98.7 F Temperature Source Oral Pulse Rate [Left Brachial] 82 Respiratory Rate 20 Blood Pressure [Left Arm] 122/83 Blood Pressure Mean [Left Arm] 96 Blood Pressure Source [Left Arm] Automatic Cuff Blood Pressure Position [Left Arm] Sitting 02 Sat by Pulse Oximetry 100 Oxygen Delivery Method Room Air Lab Data Lab results reviewed: Yes I reviewed the patient's lab results.
[2023-10-11 16:25] LABS: UTC Influenza A Antigen Negative (Negative); UTC Influenza B Antigen Negative (Negative); UTC Strep Screen (Rapid) Negative (Negative)
[2023-10-11 16:34] VITALS: BP 122/83; PULSE 82; RESP 20; TEMP 37.1; O2SAT 100
== END 2023-10-11 16:37 | disposition home or self-care (01) ==
PROVIDERS: Emergency Provider Nurse Practitioner; PCP Internal Medicine Adolescent Medicine
DX: J02.9 Acute pharyngitis, unspecified (principal); H92.02 Otalgia, left ear; R05.9 Cough, unspecified; R11.0 Nausea; E11.9 Type 2 diabetes mellitus without complications; F17.210 Nicotine dependence, cigarettes, uncomplicated
CPT/HCPCS: 87804; 87880; 99212; 99214; G0463

== ENCOUNTER 2023-10-15 14:24 | Emergency (ER) | payer BC, SELFPAY ==
[2023-10-15 15:30] VITALS: BP 128/72; PULSE 88; RESP 18; TEMP 37.1; O2SAT 98; BMI 20.7
--- NOTE | 2023-10-15 15:52 | EXP.UTC ---
Discharge Plan Disposition Patient Disposition: Home, Self-Care Condition: Good Prescriptions Prescriptions: New pseudoephedrine HCl [Sudafed 12 Hour] 120 mg tablet extended release 120 mg PO Q12H PRN (Reason: nasal congestion) Qty: 20 0RF fluticasone propionate [Flonase Allergy Relief] 50 mcg/actuation spray,suspension 1 - 2 spray intranasal DAILY Qty: 16 0RF Rx Instructions: administer into each nostril daily benzonatate 100 mg capsule 100 mg PO TID PRN (Reason: cough) Qty: 30 0RF No Action GaviLyte-C 240-22.72-6.72 -5.84 gram recon soln 240 ml PO Q10M Qty: 4000 0RF Rx Instructions: follow mailed instructions fluoxetine 10 mg capsule 10 mg PO DAILY Patient Comments: TAKE 1 CAPSULE BY MOUTH ONCE DAILY FOR 90 DAYS azithromycin [Zithromax Z-Long] 250 mg tablet See Rx Instructions .ROUTE .COMPLEX 5 Days Qty: 6 0RF Rx Instructions: For 250 mg dose pack: take 500 mg today (day 1), then 250 mg for 4 days (days 2-5) methylprednisolone [Medrol (Long)] 4 mg tablets,dose pack See Rx Instructions .Route .COMPLEX 6 Days Qty: 21 0RF Rx Instructions: taper pack; Referrals Follow up/Referrals: Davon Garcia MD [Primary Care Provider] - See instructions Activity Restrictions/Add. Instructions Additional Instructions/Restrictions: *Monitor Temp, Over the counter Motrin or Tylenol as directed/as needed Tylenol every 4 hours and Motrin every 6 hours (as long as your family doctor has told you that you can take it) for fever or pain. and straight to ER if unable to lower temp less than 101.0 after medication given *Warm salt water gargles may help to soothe the throat *Throat Lozenges? *Warm fluids like tea with honey may help to soothe the throat? *Sleep elevated *Humidifier/Vaporizer *Flonase 2 sprays in each nostril daily but be aware that it may take 2-3 days before you notice improvement Follow up with your Family Doctor if no improvement or any worsening of symptoms Clinical Impressions Clinical Impression: Sinusitis Qualifiers: Sinusitis location: unspecified location Chronicity: unspecified Qualified Code(s): J32.9 - Chronic sinusitis, unspecified Instructions Patient Instructions: Sinus Headache, DI for Sinusitis Discharge ED Provider: Marian Warner [facility] HPI General Stated complaint: congestion, cough, sinus pressure Mode of Arrival: Ambulatory Source of Information: Patient Limitations: No Limitations Time Seen by Provider: 10/15/23 15:52 Description of Symptoms (Recalled from Triage Doc. by RN): PATIENT C/O COUGH AND CONGESTION X 1 WEEK HEENT Symptoms (Recalled from RN notes): Yes Resp Symptoms (Recalled from RN notes): Yes Skin Symptoms (Recalled from RN notes): No MS Symptoms (Recalled from RN notes): No Functional Status (Recalled from RN notes): WNL History of Present Illness Provider Complaint: Patient states that she has been sick for over a week States that she was seen and treated last week for pharyngitis and that is better but now she is having sinus congestion and cough States that she was hoping she could get a shot or something to try to clean it on up since she is finished with her oral medication and still having the cough Related Data Home Medications Medication Instructions Recorded Confirmed fluoxetine 10 mg capsule 10 mg PO DAILY 10/11/23 10/11/23 Previous Rx's Medication Instructions Recorded azithromycin 250 mg tablet See Rx Instructions PO .COMPLEX 5 10/11/23 (Zithromax Z-Long) days #6 tabs methylprednisolone 4 mg tablets in See Rx Instructions .Route 10/11/23 a dose pack (Medrol (Long)) .COMPLEX 6 days #21 tabs peg 3350 240 gram-electrolytes 240 ml PO Q10M #4,000 mL 10/12/23 22.72 gram-6.72 g-5.84 g powdr for soln (Gavilyte-C) benzonatate 100 mg capsule 100 mg PO TID PRN cough #30 caps 10/15/23 fluticasone propionate 50 1 - 2 spray intranasal DAILY #16 10/15/23 mcg/actuation nasal grams spray,suspension (Flonase Allergy Relief) pseudoephedrine HCl 120 mg 120 mg PO Q12H PRN nasal 10/15/23 tablet,extended release (Sudafed congestion #20 tabs 12 Hour) Allergies Allergy/AdvReac Type Severity Reaction Status Date / Time No Known Allergies Allergy Verified 09/20/23 14:25 Worker's Comp Is this a Worker's Comp case?: No [facility] Disclaimer: The information contained in this section may have been updated after the patient was seen, as this information can be updated by other users. 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 Diabetes mellitus, type 2 Social History Smoking Status: Current some day smoker tobacco type: cigarettes alcohol intake: never substance use type: denies use current occupational status: other Travel in the last 8 weeks: None household members: family housing: house ROS Obtained: Yes All systems reviewed & no additional complaints except as documented and Yes Systems reviewed as appropriate & no additional complaints except as documented Constitutional Constitutional: Reports system reviewed and no additional complaints, except as documented and Reports as per HPI ENT Ears, Nose, Mouth, and Throat: Reports system reviewed and no additional complaints, except as documented, Reports as per HPI, Reports otalgia (bilateral ear pain and popping), Reports nasal congestion, Reports nasal discharge and Denies sore throat Cardiovascular Cardiovascular: Reports system reviewed and no additional complaints, except as documented and Reports as per HPI Respiratory Respiratory: Reports system reviewed and no additional complaints, except as documented, Reports as per HPI, Reports chest congestion and Reports cough Gastrointestinal Gastrointestingal: Reports system reviewed and no additional complaints, except as documented and as per HPI Musculoskeletal Musculoskeletal: Reports system reviewed and no additional complaints, except as documented and Reports as per HPI Physical Exam General General appearance: alert and in no apparent distress ENT ENT exam: Present mucous membranes moist Expanded ENT Exam TM/Canal exam: Bilateral TM: bulging (mild redness noted) Throat exam: Present normal inspection Respiratory Respiratory exam: Present normal lung sounds bilaterally; Absent respiratory distress or wheezes Cardiovascular Cardiovascular exam: Present regular rate, normal rhythm and normal heart sounds Neurological Exam Neurological exam: Present alert, oriented X3 and normal gait Medical Decision Making Cory Inquiry Pt receiving controlled substance: No Cory was queried for this patient: No Vital Signs: 10/15/23 15:30 Temperature 98.7 F Temperature Source Oral Pulse Rate [Right Brachial] 88 Respiratory Rate 18 Blood Pressure [Right Arm] 128/72 Blood Pressure Mean [Right Arm] 90 Blood Pressure Source [Right Arm] Automatic Cuff Blood Pressure Position [Right Arm] Sitting 02 Sat by Pulse Oximetry 98 Oxygen Delivery Method Room Air
[2023-10-15 16:15] VITALS: BP 128/72; PULSE 88; RESP 18; TEMP 37.1; O2SAT 98
[2023-10-15] MEDS: cefTRIAXone 1GM VIAL 1 GM IM (16:15)
[2023-10-15] MEDS: LIDOCAINE 1% 5ML PF VIAL IM (16:15)
== END 2023-10-15 16:30 | disposition home or self-care (01) ==
PROVIDERS: Emergency Provider Nurse Practitioner; PCP Internal Medicine Adolescent Medicine
DX: J01.90 Acute sinusitis, unspecified (principal); R09.81 Nasal congestion; R05.9 Cough, unspecified; H92.03 Otalgia, bilateral; F17.210 Nicotine dependence, cigarettes, uncomplicated
CPT/HCPCS: 96372; 99212; 99214; G0463; J0696

== ENCOUNTER 2023-11-22 08:27 | Day surgery (SDC) | payer BC, SELFPAY ==
[2023-10-22 11:02] VITALS: BMI 24.4
[2023-11-22] MEDS: LACTATED RINGERS 1000ML 1,000 ML 25 ML IV (08:42)
[2023-11-22 08:53] VITALS: BP 111/69; PULSE 74; RESP 18; TEMP 36.7; O2SAT 98
--- NOTE | 2023-11-22 09:17 | P.PNANES_ITS ---
[facility] Disclaimer: The information contained in this section may have been updated after the patient was seen, as this information can be updated by other users. 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 Diabetes mellitus, type 2 Surgical History (Updated 11/22/23 @ 08:52 by Tati Mae RN) No significant past surgical history Family History Other Family history of cancer Social History Smoking Status: Current some day smoker tobacco type: cigarettes alcohol intake: current substance use type: denies use current occupational status: other Travel in the last 8 weeks: None household members: family housing: house [facility] Anesthesia Checklist Patient Identification Patient Identification: Verbal (Name & ) Structural Data Admitted From: Home Planned Operative Procedure/s: colonoscopy Consent for Planned Operative Procedure(s) Verified: Yes Airway Assessment Mallampati Score:: Class II C-Spine Mobility Assessed: Yes TMJ Mobility Assessed: Yes Dentition: Good Dentition Neurological Assessment Level of Consciousness: Awake, Alert and Appropriate Anesthesia Plan Anesthesia Risk discussed: Yes Anesthesia Plan: Verified ASA Class: I Anesthesia Type: MAC
[2023-11-22 09:19] VITALS: O2SAT 99
--- NOTE | 2023-11-22 09:39 | HMH.SCOPE ---
Procedure: Date: 11/22/23 Patient Date of :: 1980 Procedure Performed:: Screening colonoscopy & biopsies Indications:: Colon cancer screening Performing Provider:: Angela Hernandez MD Referring Provider:: Manuel Garcia MD Sedation:: Propofol Procedure:: After placing the patient in the left lateral decubitus position, the colonoscopy was gently inserted into the rectum and under direct visualization advanced to the cecum which was identified by transillumination in the right lower quadrant, identification of the ileocecal valve, appendiceal orifice, and cecal strap. Color, texture, mucosa, and anatomy of the colon were carefully examined with the scope. Findings:: Anal canal: normal Rectum: normal, melanosis coli Sigmoid colon: normal without polyps or inflammatory changes, melanosis coli Descending colon: normal without polyps or inflammatory changes, melanosis coli Splenic flexure: normal Transverse colon: normal without polyps or inflammatory changes, melanosis coli Hepatic flexure: normal Ascending colon: normal without polyps or inflammatory changes, marked melanosis coli Cecum: normal, marked melanosis coli Terminal ileum: not visualized Random biopsies obtained for evaluation of mucosa Impression: Marked melanosis coli in an otherwise normal colon Specimens:: Random colon Recommendations:: Follow up examination in about TEN years or so, sooner if clinically indicated. Decrease use of OTC colon health products will help to decrease melanosis coli. Complications:: None Estimated blood obtained (mL): 0 Colonoscopy Component Colonoscopy Component Was a colonoscopy performed during today's procedure?: Yes Recommended follow up colonoscopy of at least 10 years?: Yes
[2023-11-22 09:41] VITALS: BP 106/59; PULSE 71; RESP 18; O2SAT 98
[2023-11-22 09:46] VITALS: BP 115/54; PULSE 72; RESP 18; O2SAT 98
[2023-11-22 10:01] VITALS: BP 104/75; PULSE 73; RESP 16; O2SAT 97
[2023-11-22 10:11] VITALS: BP 114/64; PULSE 72; RESP 18; O2SAT 100
== END 2023-11-22 10:28 | disposition home or self-care (01) ==
PROVIDERS: PCP Internal Medicine Adolescent Medicine; Visit Provider Internal Medicine Gastroenterology
PROC: (CPT 45378; principal; 2023-11-22 09:30)
DX: Z12.11 Encounter for screening for malignant neoplasm of colon (principal); K63.89 Other specified diseases of intestine
CPT/HCPCS: 45378

== ENCOUNTER 2024-02-10 09:14 | Emergency (ER) | payer BC, SELFPAY ==
[2024-02-10 09:30] VITALS: BP 142/81; PULSE 87; RESP 19; TEMP 36.8; O2SAT 100; BMI 24.6
--- NOTE | 2024-02-10 09:53 | EXP.UTC ---
Discharge Plan Disposition Patient Disposition: Home, Self-Care Condition: Good Prescriptions Prescriptions: New amoxicillin 500 mg tablet 500 mg PO BID 10 Days Qty: 20 0RF fluticasone propionate 50 mcg/actuation spray,suspension 1 spray intranasal DAILY Qty: 9.9 0RF No Action fluoxetine [Prozac] 10 mg capsule 10 mg PO DAILY Patient Comments: TAKE 1 CAPSULE BY MOUTH ONCE DAILY FOR 90 DAYS Referrals Follow up/Referrals: Davon Garcia MD [Primary Care Provider] - See instructions Activity Restrictions/Add. Instructions Additional Instructions/Restrictions: Start antibiotic as soon as possible and be sure to take as ordered for full length of time even though he should start feeling better in 24-48 hours. Tylenol or Motrin as needed for pain or fever Encourage fluids, water, Gatorade, Powerade, Pedialyte if infant/toddler/child Warm compresses often helps when placed over ear Return immediately for new or worsening symptoms no noticeable improvement in 48-72 hours and in 10-14 days to ensure the ears are return to baseline. Follow-up with primary care Clinical Impressions Clinical Impression: URI (upper respiratory infection), Otitis media Instructions Patient Instructions: DI for Viral Upper Respiratory Infection -- Adult, Ear Infections (Alternative Therapy) Discharge ED Provider: Yo ([facility] [place] HPI General Stated complaint: sore throat, h/a, bilateral ear pain, congestion Mode of Arrival: Ambulatory Source of Information: Patient Limitations: No Limitations Time Seen by Provider: 02/10/24 09:53 Description of Symptoms (Recalled from Triage Doc. by RN): Pt's symptoms are sinus pressure, sore throat, TALBOT, and drainage. HEENT Symptoms (Recalled from RN notes): Yes Resp Symptoms (Recalled from RN notes): No Skin Symptoms (Recalled from RN notes): No MS Symptoms (Recalled from RN notes): No Functional Status (Recalled from RN notes): n/a History of Present Illness Provider Complaint: 43 yr old female presents for c/o sinus pressure, ear pain, sore throat, TALBOT, and drainage. Related Data Home Medications Medication Instructions Recorded Confirmed fluoxetine 10 mg capsule (Prozac) 10 mg PO DAILY 10/11/23 02/10/24 Previous Rx's Medication Instructions Recorded amoxicillin 500 mg tablet 500 mg PO BID 10 days #20 tabs 02/10/24 fluticasone propionate 50 1 spray intranasal DAILY #9.9 mL 02/10/24 mcg/actuation nasal spray,suspension Allergies Allergy/AdvReac Type Severity Reaction Status Date / Time No Known Allergies Allergy Verified 02/10/24 09:50 Worker's Comp Is this a Worker's Comp case?: No [facility] Disclaimer: The information contained in this section may have been updated after the patient was seen, as this information can be updated by other users. 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) Smoking Status: Current some day smoker tobacco type: cigarettes alcohol intake: current alcohol intake frequency: 0-2 drinks per day substance use type: denies use current occupational status: other Travel in the last 8 weeks: None household members: family housing: house ROS Obtained: Yes All systems reviewed & no additional complaints except as documented Constitutional Constitutional: Reports system reviewed and no additional complaints, except as documented Eyes Eyes: Reports system reviewed and no additional complaints, except as documented ENT Ears, Nose, Mouth, and Throat: Reports system reviewed and no additional complaints, except as documented, Reports as per HPI, Reports otalgia, Reports facial pain, Reports nasal congestion, Reports nasal discharge, Reports sinus pain, Reports sinus pressure and Reports sore throat Cardiovascular Cardiovascular: Reports system reviewed and no additional complaints, except as documented Respiratory Respiratory: Reports system reviewed and no additional complaints, except as documented, Reports as per HPI and Reports cough Gastrointestinal Gastrointestingal: Reports system reviewed and no additional complaints, except as documented Integumentary/Breasts Skin/Breast: Reports system reviewed and no additional complaints, except as documented Neurologic Neurologic: Reports system reviewed and no additional complaints, except as documented Endocrine Endocrine: Reports system reviewed and no additional complaints, except as documented Hematologic/Lymphatic Henatologic/Lymphatic: Reports system reviewed and no additional complaints, except as documented Allergic/Immunologic Allergic/Immunologic: Reports system reviewed and no additional complaints, except as documented Physical Exam General General appearance: alert and in no apparent distress Head Head exam: atraumatic Eye Eye exam: Present normal appearance and PERRL ENT ENT exam: Present mucous membranes moist Expanded ENT Exam TM/Canal exam: Bilateral TM: erythema, bulging and loss of landmarks Nose exam: Present sinus tenderness Throat exam: Present tonsillar erythema Respiratory Respiratory exam: Present normal lung sounds bilaterally Cardiovascular Cardiovascular exam: Present regular rate and normal rhythm Extremities Exam Extremities exam: Present normal inspection Neurological Exam Neurological exam: Present alert and oriented X3 Skin Skin exam: Present warm and intact Medical Decision Making Medical Records Medical records reviewed: Yes I reviewed the patient's medical records. Cory Inquiry Pt receiving controlled substance: No Cory was queried for this patient: No Vital Signs: 02/10/24 09:30 Temperature 98.3 F Temperature Source Oral Pulse Rate [Right Radial] 87 Respiratory Rate 19 Blood Pressure [Right Arm] 142/81 H Blood Pressure Mean [Right Arm] 101 Blood Pressure Source [Right Arm] Automatic Cuff Blood Pressure Position [Right Arm] Sitting 02 Sat by Pulse Oximetry 100 Oxygen Delivery Method Room Air
[2024-02-10] MEDS: DEXAMETHASONE 4MG/ML 1ML VIAL 4 MG IM (10:02)
[2024-02-10 10:20] VITALS: BP 142/81; PULSE 87; RESP 19; TEMP 36.8; O2SAT 100
== END 2024-02-10 10:20 | disposition home or self-care (01) ==
PROVIDERS: Emergency Provider Nurse Practitioner Family; PCP Internal Medicine Adolescent Medicine
DX: H66.93 Otitis media, unspecified, bilateral (principal); R51.9 Headache, unspecified; R07.0 Pain in throat; J06.9 Acute upper respiratory infection, unspecified
CPT/HCPCS: 96372; 99212; 99214; G0463

== ENCOUNTER 2024-02-13 11:33 | Emergency (ER) | payer BC, SELFPAY ==
[2024-02-13 11:50] VITALS: BP 130/77; PULSE 92; RESP 20; TEMP 36.8; O2SAT 97; BMI 24.0
--- NOTE | 2024-02-13 12:41 | EXP.UTC ---
Discharge Plan Disposition Patient Disposition: Home, Self-Care Condition: Good Prescriptions Prescriptions: New azithromycin [Zithromax Z-Long] 250 mg tablet See Rx Instructions .ROUTE .COMPLEX 5 Days Qty: 6 0RF Rx Instructions: For 250 mg dose pack: take 500 mg today (day 1), then 250 mg for 4 days (days 2-5) methylprednisolone [Medrol (Long)] 4 mg tablets,dose pack See Rx Instructions .Route .COMPLEX 6 Days Qty: 21 0RF Rx Instructions: taper pack; guaifenesin [Mucinex] 600 mg tablet extended release 12hr 1,200 mg PO BID PRN (Reason: cough) Qty: 20 0RF No Action loratadine 10 mg tablet 10 mg PO DAILY Patient Comments: TAKE 1 TABLET BY MOUTH DAILY fluoxetine [Prozac] 10 mg capsule 10 mg PO DAILY Patient Comments: TAKE 1 CAPSULE BY MOUTH ONCE DAILY FOR 90 DAYS amoxicillin 500 mg tablet 500 mg PO BID 10 Days Qty: 20 0RF fluticasone propionate 50 mcg/actuation spray,suspension 1 spray intranasal DAILY Qty: 9.9 0RF Referrals Follow up/Referrals: Davon Garcia MD [Primary Care Provider] - See instructions Activity Restrictions/Add. Instructions Additional Instructions/Restrictions: Take medication as prescribed Follow up with your Family Doctor if needed Straight to ER if any life threatening symptoms Humidifier may help with cough and nasal congestion Clinical Impressions Clinical Impression: Bronchitis Instructions Patient Instructions: Acute Bronchitis Discharge ED Provider: Marian Warner [facility] HPI General Stated complaint: sore throat, cough Mode of Arrival: Ambulatory Source of Information: Patient Limitations: No Limitations Time Seen by Provider: 02/13/24 12:41 Description of Symptoms (Recalled from Triage Doc. by RN): PATIENT C/O SINUS CONGESTION, SORE THROAT, PRODUCTIVE COUGH WITH YELLOW SPUTUM, AND HEADACHE THAT STARTED SUNDAY. SHE STATES SHE WAS SEEN ON SUNDAY AND GIVEN A STEROID SHOT AND ORAL ANTIBIOTICS. ON SUNDAY AND SUNDAY SHE FELT SOME BETTER, BUT YESTERDAY MORNING SHE WOKE UP FEELING WORSE HEENT Symptoms (Recalled from RN notes): Yes Resp Symptoms (Recalled from RN notes): Yes Skin Symptoms (Recalled from RN notes): No MS Symptoms (Recalled from RN notes): No Functional Status (Recalled from RN notes): WNL History of Present Illness Provider Complaint: Patient states that she was seen in the [facility] on Sunday and was giving amoxicillin and steriod injection states that she was feeling better but now started with sinus pressure and drainage and productive cough at times states today she was feeling worse and felt like she needed to come in and get something else to help Related Data Home Medications Medication Instructions Recorded Confirmed fluoxetine 10 mg capsule (Prozac) 10 mg PO DAILY 10/11/23 02/13/24 loratadine 10 mg tablet 10 mg PO DAILY 02/13/24 02/13/24 Previous Rx's Medication Instructions Recorded amoxicillin 500 mg tablet 500 mg PO BID 10 days #20 tabs 02/10/24 fluticasone propionate 50 1 spray intranasal DAILY #9.9 mL 02/10/24 mcg/actuation nasal spray,suspension azithromycin 250 mg tablet See Rx Instructions PO .COMPLEX 5 02/13/24 (Zithromax Z-Long) days #6 tabs guaifenesin 600 mg tablet, 1,200 mg (2 x 600 mg) PO BID PRN 02/13/24 extended release 12 hr (Mucinex) cough #20 tabs methylprednisolone 4 mg tablets in See Rx Instructions .Route 02/13/24 a dose pack (Medrol (Long)) .COMPLEX 6 days #21 tabs Allergies Allergy/AdvReac Type Severity Reaction Status Date / Time No Known Allergies Allergy Verified 02/10/24 09:50 Worker's Comp Is this a Worker's Comp case?: No [facility] Disclaimer: The information contained in this section may have been updated after the patient was seen, as this information can be updated by other users. 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) Smoking Status: Current some day smoker tobacco type: cigarettes alcohol intake: current alcohol intake frequency: 0-2 drinks per day substance use type: denies use current occupational status: other Travel in the last 8 weeks: None household members: family housing: house ROS Obtained: Yes All systems reviewed & no additional complaints except as documented and Yes Systems reviewed as appropriate & no additional complaints except as documented Constitutional Constitutional: Reports system reviewed and no additional complaints, except as documented and Reports as per HPI ENT Ears, Nose, Mouth, and Throat: Reports system reviewed and no additional complaints, except as documented, Reports as per HPI, Reports sinus pain and Reports sinus pressure Cardiovascular Cardiovascular: Reports system reviewed and no additional complaints, except as documented and Reports as per HPI Respiratory Respiratory: Reports system reviewed and no additional complaints, except as documented, Reports as per HPI, Reports chest congestion and Reports cough Gastrointestinal Gastrointestingal: Reports system reviewed and no additional complaints, except as documented and as per HPI Integumentary/Breasts Skin/Breast: Reports system reviewed and no additional complaints, except as documented and Reports as per HPI Physical Exam General General appearance: alert and in no apparent distress Expanded ENT Exam Nose exam: Present sinus tenderness Throat exam: Present other (PND noted) Respiratory Respiratory exam: Present normal lung sounds bilaterally; Absent respiratory distress or wheezes Cardiovascular Cardiovascular exam: Present regular rate, normal rhythm and normal heart sounds Abdominal Exam Abdominal exam: Present soft and normal bowel sounds; Absent distention or tenderness Neurological Exam Neurological exam: Present alert, oriented X3 and normal gait Medical Decision Making Cory Inquiry Pt receiving controlled substance: No Cory was queried for this patient: No Vital Signs: 02/13/24 11:50 Temperature 98.3 F Temperature Source Oral Pulse Rate [Left Brachial] 92 H Respiratory Rate 20 Blood Pressure [Left Arm] 130/77 Blood Pressure Mean [Left Arm] 94 Blood Pressure Source [Left Arm] Automatic Cuff Blood Pressure Position [Left Arm] Sitting 02 Sat by Pulse Oximetry 97 Oxygen Delivery Method Room Air
[2024-02-13 12:55] VITALS: BP 130/77; PULSE 92; RESP 20; TEMP 36.8; O2SAT 97
== END 2024-02-13 12:57 | disposition home or self-care (01) ==
PROVIDERS: Emergency Provider Nurse Practitioner; PCP Internal Medicine Adolescent Medicine
DX: J20.9 Acute bronchitis, unspecified (principal); R07.0 Pain in throat; R09.81 Nasal congestion; R05.9 Cough, unspecified
CPT/HCPCS: 99212; 99214; G0463

== ENCOUNTER 2024-05-04 14:52 | Emergency (ER) | payer BC, SELFPAY ==
[2024-05-04 15:34] VITALS: BP 128/79; PULSE 78; RESP 19; TEMP 36.9; O2SAT 100; BMI 25.0
--- NOTE | 2024-05-04 15:50 | EXP.UTC ---
Discharge Plan Disposition Patient Disposition: Home, Self-Care Condition: Good Prescriptions Prescriptions: New triamcinolone acetonide 0.025 % ointment 1 applic topical TID PRN (Reason: rash) Qty: 15 0RF Rx Instructions: apply thin layer to area as directed No Action fluoxetine [Prozac] 10 mg capsule 10 mg PO DAILY Patient Comments: TAKE 1 CAPSULE BY MOUTH ONCE DAILY FOR 90 DAYS Referrals Follow up/Referrals: Constance Laurent MD [Referring] - See instructions (Call for appointment) Davon Garcia MD [Primary Care Provider] - See instructions Activity Restrictions/Add. Instructions Additional Instructions/Restrictions: Keep skin clean and dry and avoid harsh heavy soaps Using lukewarm water instead of hot Using mild, fragrance-free cleansers Making sure you dry your hands well Using cream or petroleum jelly to protect your hands after drying them Wearing latex-free gloves when washing dishes Wearing gloves if the weather is cold or wet Staying away from possible irritants, such as detergents, solvents, or hair products Staying away from weather extremes, when possible Reducing your stress may also help you limit your symptoms. Mattehw points about dyshidrotic eczema Dyshidrotic eczema is a type of skin inflammation. It causes a burning, itching feeling and a blistering rash.It can affect your palms, the sides of your fingers, and the soles of your feet. In some people, symptoms can be quite severe.Steroid ointment and moisturizing lotion or cream are some treatments for the condition.General skin care may help you limit how often and severely your symptoms happen. Follow up with Dermatology, call office for appointment Clinical Impressions Clinical Impression: Eczema, dyshidrotic Instructions Patient Instructions: Eczema, Triamcinolone Topical Print Language Print Language: Czech Discharge ED Provider: Marian Warner [facility] General Stated complaint: rash Mode of Arrival: Ambulatory Source of Information: Patient Limitations: No Limitations Time Seen by Provider: 05/04/24 15:50 Description of Symptoms (Recalled from Triage Doc. by RN): PATIENT C/O RASH TO LEFT RING FINGER THAT HAS BEEN INTERMITTEN FOR THE LAST 3 MONTHS. SHE STATES WHEN RASH APPEARS IT LAST APPROX 2 WEEKS. SHE STATES SHE SAW HER PCP INITIALLY AND WAS TREATED FOR SHINGLES HEENT Symptoms (Recalled from RN notes): No Resp Symptoms (Recalled from RN notes): No Skin Symptoms (Recalled from RN notes): Yes MS Symptoms (Recalled from RN notes): No Functional Status (Recalled from RN notes): WNL History of Present Illness Provider Complaint: Patient states that for the last 3 mths she has been having rash appear on her left ring finger that is small blister like areas that itch, burn and then last about 2 weeks and go away States that for the last 2 weeks she has been having a break out on the finger again so she came in to get it checked Related Data Home Medications ?Medication ?Instructions ?Recorded ?Confirmed fluoxetine 10 mg capsule (Prozac) 10 mg PO DAILY 10/11/23 05/04/24 Previous Rx's ?Medication ?Instructions ?Recorded triamcinolone acetonide 0.025 % 1 applic topical TID PRN rash #15 05/04/24 topical ointment grams Allergies Allergy/AdvReac Type Severity Reaction Status Date / Time No Known Allergies Allergy Verified 02/10/24 09:50 Worker's Comp Is this a Worker's Comp case?: No [facility] Disclaimer: The information contained in this section may have been updated after the patient was seen, as this information can be updated by other users. 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) Smoking Status: Current some day smoker tobacco type: cigarettes alcohol intake: current alcohol intake frequency: 0-2 drinks per day substance use type: denies use current occupational status: other Travel in the last 8 weeks: None household members: family housing: house ROS Obtained: Yes All systems reviewed & no additional complaints except as documented and Yes Systems reviewed as appropriate & no additional complaints except as documented Constitutional Constitutional: Reports system reviewed and no additional complaints, except as documented and Reports as per HPI ENT Ears, Nose, Mouth, and Throat: Reports system reviewed and no additional complaints, except as documented and Reports as per HPI Cardiovascular Cardiovascular: Reports system reviewed and no additional complaints, except as documented and Reports as per HPI Respiratory Respiratory: Reports system reviewed and no additional complaints, except as documented and Reports as per HPI Integumentary/Breasts Skin/Breast: Reports system reviewed and no additional complaints, except as documented, Reports as per HPI and Reports other (blister like rash on left ring finger that itches and march on off x 3 mth) Physical Exam General General appearance: alert and in no apparent distress ENT ENT exam: Present mucous membranes moist Respiratory Respiratory exam: Present normal lung sounds bilaterally; Absent respiratory distress or wheezes Cardiovascular Cardiovascular exam: Present regular rate, normal rhythm and normal heart sounds Neurological Exam Neurological exam: Present alert, oriented X3 and normal gait Skin Skin exam: Present other (small blister like rash note on left ring finger no redness with areas of dryness appears lke dyshidrotic eczema) Medical Decision Making Cory Inquiry Pt receiving controlled substance: No Cory was queried for this patient: No Vital Signs: 05/04/24 15:34 Temperature 98.4 F Temperature Source Oral Pulse Rate [Left Brachial] 78 Respiratory Rate 19 Blood Pressure [Left Arm] 128/79 Blood Pressure Mean [Left Arm] 95 Blood Pressure Source [Left Arm] Automatic Cuff Blood Pressure Position [Left Arm] Sitting 02 Sat by Pulse Oximetry 100 Oxygen Delivery Method Room Air
[2024-05-04 16:06] VITALS: BP 128/79; PULSE 78; RESP 19; TEMP 36.9; O2SAT 100
== END 2024-05-04 16:10 | disposition home or self-care (01) ==
PROVIDERS: Emergency Provider Nurse Practitioner; PCP Internal Medicine Adolescent Medicine
DX: L30.1 Dyshidrosis [pompholyx] (principal)
CPT/HCPCS: 99212; 99214; G0463

== ENCOUNTER 2025-06-30 10:59 | Outpatient (CLI) | payer BC, SELFPAY ==
--- OUTSIDE RECORDS SUMMARY | 2025-05-15 13:31 | XMS_ITS | Encounter Summary ---
[facility] Address [address] [place] [id number] Care Team Providers Care Owner Operator Name Role Phone Jorge Sorto Primary Care Provider [phone] Reason for Referral * Diagnostic Imaging (Routine) - Closed Specialty Diagnoses / Procedures Referred By Cholo t Referred To Contact Radiology Diagnoses Encounter for screening mammogram for malignant neoplasm of breast Procedures Mammo Screening Digital Tomosynthesis Bilateral With CAD Jorge Sorto PA [address] [place] [address] Phone: tel: fax: [facility] [address] [place] [address] Phone: tel: Referral ID Status Reason Start Date Expiration Date Visits Re quested Visits Authorized [id number] Closed 04/09/2025 07/09/2026 1 1 Reason for Visit * Diagnostic Imaging (Routine) - Closed Specialty Diagnoses / Procedures Referred By Cholo dawson Referred To Contact Radiology Diagnoses Encounter for screening mammogram for malignant neoplasm of breast Procedures Mammo Screening Digital Tomosynthesis Bilateral With Jorge Hull PA [address] [place] [address] Phone: tel: fax: [facility] [address] [place] [address] Phone: tel: Referral ID Status Reason Start Date Expiration Date Visits Re quested Visits Authorized [id number] Closed 04/09/2025 07/09/2026 1 1 Encounter Details Date Type Department Care Team (Latest Contact Info) Description 05/15/2025 1:31 PM EDT - 05/15/2025 11:59 PM EDT Hospital Encounter [facility] [address] [phone] Jorge Sorto PA [address] [place] [address] Encounter for screening mammogram for malignant neoplasm of breast Discharge Disposition: Home or Self Care Social History Tobacco Use Types Packs/Day Years Used Date Smoking Tobacco: Every Day Cigarettes Alcohol Use Standard Drinks/Week Comments Yes 4 (1 standard drink = 0.6 oz pur e alcohol) PHQ-2 Answer Date Recorded Patient Health Questionnaire-2 Score 0 04/09/2025 Comments No Sex and Gender Information Value Date Recorded Sex Assigned at Female 04/09/2025 11:56 AM EDT Legal Sex Female 11:55 AM EDT Gender Identity Not on file Sexual Orientation Straight 04/09/2025 11 :56 AM EDT documented as of this encounter Medications at Time of Discharge FLUoxetine (PROzac) 10 MG capsuleIndication s:Generalized anxiety disorder Take 1 capsule by mouth Daily. 90 capsule 3 04/09/2025 documented as of this encounter Plan of Treatment Upcoming Encounters Date Type Department Care Team (Late st Contact Info) Description 04/12/2026 2:30 PM EDT Office Visit [facility] [address] [phone] Jorge Sorto PA [address] [id number] documented as of this encounter Procedures Procedure Name Priority Date/Time Associated Diagnosis Comments MAMMO SCREENING DIGITAL TOMOSYNTHESIS BILATERAL W CAD Routine 05/15/2025 1:54 PM EDT Encounter for screening mammogram for malignant neoplasm of breast documented in this encounter Results * Mammo Screening Digital Tomosynthesis Bilateral With CAD (05/15/2025 1:54 PM EDT) Anatomical Region Laterality Modality Breast N/A Mammography 05/19/2025 5:00 PM EDT Impressions 05/19/2025 5:00 PM EDT No findings suspicious for malignancy. ACR BI-RADS CATEGORY: 1, NEGATIVE RECOMMENDATION: Yearly mammogram, yearly clinical breast exam, and encourage self breast awareness. CAD was used. The standard false negative rate of mammography is between 10% and 25%. Complex patterns or increased breast density will markedly elevate the false negative rate of mammography. A letter, in lay terminology, with the results of this exam will be mailed to the patient. At our facility, a triangular marker is positioned over a palpable area of concern indicated by the patient. A white mountain marker is placed over a visible skin lesion. A linear marker indicates a scar. If there is a palpable area of concern, biopsy should be considered regardless of imaging findings. 05/19/2025 5:[address] Poppy Schofield MD on Narrative 05/19/2025 5:00 PM EDT DIGITAL SCREENING MAMMOGRAM WITH TOMOSYNTHESIS HISTORY: Routine screening. The patient has had an interval 19 pound weight loss. IMAGE COMPARISON: 12/18/2022, 04/04/2021. TECHNIQUE: Low dose full field digital breast tomosynthesis imaging was performed with 2D and 3D acquisitions consisting of bilateral CC and MLO views. FINDINGS: There are scattered areas of fibroglandular density. The fibroglandular pattern appears stable. There is no mass, worrisome microcalcifications, or architectural distortion to suggest development of malignancy. Jorge TURNER IMG MAMMOGRAPHY ORDERABLES Fin al Result documented in this encounter Visit Diagnoses Diagnosis Encounter for screening mammogram for malignant neoplasm of breast documented in this encounter Care Teams Owner Operator Relationship Specialty Start Date End Date Jorge Sorto PA [address] [place] [id number] PCP - General Family Medicine 04/09/25 documented as of this encounter
--- OUTSIDE RECORDS SUMMARY | 2025-06-30 11:02 | XMS_ITS | Encounter Summary ---
[facility] Organization [facility] Address [address] [place] [id number] Care Team Providers Care Lane Attendant Name Role Phone Jorge Sorto Primary Care Provider [phone] Encounter Details Date Type Department Care Team (Late Contact Info) Description 04/20/2025 Results Follow-Up [facility] [address] [place] [address] Jorge Sorto PA [address] [place] [address] Social History Tobacco Use Types Packs/Day Years [...] AM EDT documented as of this encounter Plan of Treatment Upcoming Encounters Date Type Department Care Team (Late Contact Info) Description 04/12/2026 2:30 PM EDT Office Visit [facility] [address] [place] [address] Jorge Sorto PA [address] [place] [address] documented as of this encounter Visit Diagnoses Not on filedocumented in this encounter Care Teams Lane Attendant Relationship Specialty Start Date End Date Jorge Sorto PA [address] [place] [address] PCP - General Family Medicine 04/09/25 documented as of this encounter
--- OUTSIDE RECORDS SUMMARY | 2025-06-30 11:02 | XMS_ITS | Encounter Summary ---
Author Organization [facility] Address [address] [place] [id number] Care Team Providers Care Trial Examiner Name Role Phone Jorge Sorto Primary Care Provider [phone] Encounter Details Date Type Department Care Team (Latest Contact Info) Description 05/15/2025 Travel Social History Tobacco Use Types Packs/Day Years [...] Description 04/12/2026 2:30 PM EDT Office Visit [facility] [address] [place] [address] Jorge Sorto PA [address] [place] [address] documented as of this encounter Visit Diagnoses Not on filedocumented in this encounter Care Teams Trial Examiner Relationship Specialty Start Date End Date Jorge Sorto PA [address] [place] [address] PCP - General Family Medicine 04/09/25 documented as of this encounter
--- OUTSIDE RECORDS SUMMARY | 2025-06-30 11:02 | XMS_ITS | Clinical Summary ---
Author Organization [facility] , [facility] Address [address] [place] [address] Phone Care Team Providers Care Multigraph Operator Name Role Phone Hernan ROE, Bhaskar Cartagena Primary Care Provider [phone] Reason for Visit and Chief Complaint referred by no pcp - The Chief Complaint is: lt pinky finger Problems Includes: Problems addressed during this encounter and other active Problems No Active Problems Plan of Treatment - Intervention and counseling on cessation of tobacco use, 3-10 minutes - Last Documented On 03/26/2014 9:26AM ; [facility], [facility] Patient booked for surgery today at [facility] [place] - Last Documented On 03/26/2014 9:26AM ; [facility], [facility] Instructions to patient Instructions for patient Last Documented On 4 10:19AM ; [facility] Intervention and counseling on cessation of tobacco use Last Documented On 4 10:19AM ; [facility] Education and Decision Aids were provided during visit for: Education and counseling Last Documented On 4 10:19AM ; [facility], [facility] Assessments Includes: Assessments from this encounter No Assessments Recorded Instructions Includes: Instructions from this encounter Instructions to patient Instructions for patient Last Documented On 4 10:19AM ; [facility], [facility] Intervention and counseling on cessation of tobacco use Last Documented On 4 10:19AM ; [facility], [facility] Education and Decision Aids were provided during visit for: Education and counseling Last Documented On 4 10:19AM ; [facility], [facility] Medical Equipment - Implanted Devices Includes: Current Devices No Medical Equipment Recorded Medications Administered Includes: Administered Medications from this encounter No Administered Medications Recorded Vital Signs Includes: Vital Signs from this encounter Vital Name 03/23/2014 10:19A Blood Pressure Sitting (mmHg) 131/80 Pulse Rate-Sitting (bpm) 61 Height (in) 66 Weight (lb) 135 Body Mass Index (kg/m2) 21.8 Body Surface Area (m2) 1.7 Last Documented: On 03/23/2014 10:19A M ; [facility], [facility] Results Includes: Results discussed during this encounter No Results Recorded For Specified Dates History of Present Illness Includes: History of Present Illness from this encounter HPI Melina Hilario is a 33 year old female. - Medication list reviewed. Social History Description Last Updated Tobacco use 03/23/2014 Last Documented On 4 9:26AM ; [facility], [facility] Smoking status : Current everyday smoker 03/23/2014 Last Documented On 4 9:26AM ; [facility] Procedures and Surgical History Includes: Procedures from this encounter Procedures Code Diagnosis Performing Provider Service L ocation Service Date intervention and counseling on cessation of tobacco use 4000F Last Documented On 4 10:19AM ; [facility] Clinical summary provided to patient Last Documented On 4 10:19AM ; [facility], [facility] 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 Includes: 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 addressed during this encounter No 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 Recorded Family History Includes: Family History addressed during this encounter No Family History Recorded Review of Systems Includes: Review of Systems from this encounter No Review of Systems Recorded Mental Status Includes: Mental Status from this encounter No Mental Status Recorded Functional Status Includes: Functional Status from this encounter No Functional Status Recorded Physical Exam Includes: Physical Exam from this encounter Allergies Includes: Active Allergies No Known Allergies Encounters Encounter Provider Location Date Check-In Time Check-Out Time Diagnosis NEW PATIENT Bhaskar Becerra MD [facility] 03/23/20 14 10:02AM 11:20AM Insurance Includes: Active Insurance Policies Plan Name Member ID Group # Subscriber Relationship Effect julio Dates 1 - [facility] [id number] Melina Garza Self 09/17/2013 - Unknown Clinical Notes Includes: Clinical Notes from this encounter No Clinical Notes Recorded
--- OUTSIDE RECORDS SUMMARY | 2025-06-30 11:02 | XMS_ITS | Clinical Summary ---
Author Organization [facility] , [facility] Address [address] [place] [address] Phone Care Team Providers Care Turbine Subassembler Name Role Phone Hernan ROE, Bhaskar Cartagena Primary Care Provider [phone] Reason for Visit and Chief Complaint referred by pcp - The Chief Complaint is: finger pain Problems Includes: Problems addressed during this encounter and other active Problems No Active Problems Plan of Treatment - Intervention and counseling on cessation of tobacco use, 3-10 minutes - Last Documented On 05/07/2014 10:03AM ; [facility] - Intervention and counseling on cessation of tobacco use, greater than 10 minutes - Last Documented On 05/07/2014 10:03AM ; [facility] Dorsal Lumifoam splint Follow up on 05/20/14 @ 3:15pm - Last Documented On 05/07/2014 10:03AM ; [facility] Instructions to patient Instructions for patient Last Documented On 4 11:11AM ; [facility] Smoking cessation Last Documented On 4 11:11AM ; [facility] Intervention and counseling on cessation of tobacco use Last Documented On 4 11:11AM ; [facility] Education and Decision Aids were provided during visit for: Education and counseling Last Documented On 4 11:11AM ; [facility] Assessments Includes: Assessments from this encounter No Assessments Recorded Instructions Includes: Instructions from this encounter Instructions to patient Instructions for patient Last Documented On 4 11:11AM ; [facility] Smoking cessation Last Documented On 4 11:11AM ; [facility] Intervention and counseling on cessation of tobacco use Last Documented On 4 11:11AM ; [facility], [facility] Education and Decision Aids were provided during visit for: Education and counseling Last Documented On 4 11:11AM ; [facility], [facility] Medical Equipment - Implanted Devices Includes: Current Devices No Medical Equipment Recorded Medications Administered Includes: Administered Medications from this encounter No Administered Medications Recorded Vital Signs Includes: Vital Signs from this encounter Vital Name 05/04/2014 11:10A Blood Pressure Sitting R 126/78 Pulse Rate-Sitting (bpm) 71 Height (in) 66 Weight (lb) 135 Body Mass Index (kg/m2) 21.8 Body Surface Area (m2) 1.7 Last Documented: On 05/04/2014 11:19A M ; [facility], [facility] Results Includes: Results discussed during this encounter No Results Recorded For Specified Dates History of Present Illness Includes: History of Present Illness from this encounter ADRIAN Hilario is a 33 year old female. - Medication list reviewed. Social History Description Last Updated Tobacco use 05/04/2014 Last Documented On 4 10:03AM ; [facility] Smoking status : Current everyday smoker 05/04/2014 Last Documented On 4 10:03AM ; [facility], [facility] Procedures and Surgical History Includes: Procedures from this encounter Procedures Code Diagnosis Performing Provider Service L ocation Service Date intervention and counseling on cessation of tobacco use 4000F Last Documented On 4 11:11AM ; [facility], [facility] smoking cessation Last Documented On 4 11:11AM ; [facility], [facility] Clinical summary provided to patient Last Documented On 4 11:10AM ; [facility], [facility] 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 Includes: 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 addressed [...] Encounters Encounter Provider Location Date Check-In Time Check- Out Time Diagnosis Follow Up Bhaskar Becerra MD [facility] 4 10:38AM 11:42AM Insurance Includes: Active Insurance Policies Plan Name Member ID Group # Subscriber Relationship Effect julio Dates 1 - [facility] [id number] Melina Garza Self 09/17/2013 - Unknown Clinical Notes Includes: Clinical Notes from this encounter No Clinical Notes Recorded
--- OUTSIDE RECORDS SUMMARY | 2025-06-30 11:02 | XMS_ITS | Clinical Summary ---
Author Organization [facility] , [facility] Address [address] [place] [address] Phone Care Team Providers Care Bowling Alley Attendant Name Role Phone Hernan ROE, Bhaskar Cartagena Primary Care Provider [phone] Reason for Visit and Chief Complaint referred by self - The Chief Complaint is: finger pain Problems Includes: Problems addressed during this encounter and other active Problems No Active Problems Plan of Treatment Follow up 04/20/14 @ 3:15 - Last Documented On 04/07/2014 8:36AM ; [facility] Assessments Includes: Assessments from this encounter No Assessments Recorded Medical Equipment - Implanted Devices Includes: Current Devices No Medical Equipment Recorded Medications Administered Includes: Administered Medications from this encounter No Administered Medications Recorded Vital Signs Includes: Vital Signs from this encounter Vital Name 04/06/2014 02:01P Blood Pressure Sitting L 125/75 Pulse Rate-Sitting (bpm) 77 Height (in) 66 Weight (lb) 135 Body Mass Index (kg/m2) 21.8 Body Surface Area (m2) 1.7 Last Documented: On 04/06/2014 2:04PM ; [facility] Results Includes: Results discussed during this encounter No Results Recorded For Specified Dates History of Present Illness Includes: History of Present Illness from this encounter ADRIAN Hilario is a 33 year old female. - Medication list reviewed. Social History Description Last Updated Smoking status : Never smoker 04/06/2014 Last Documented On 8:36AM ; [facility] Procedures and Surgical History Includes: Procedures from this encounter Procedures Code Diagnosis Performing Provider Service L ocation Service Date Clinical summary provided to patient Last Documented On 2:01PM ; [facility] 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 Includes: 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 addressed [...] Date Check-In Time Check- Out Time Diagnosis Post Op Bhaskar Becerra MD [facility] 4 1:47PM 2:19PM Insurance Includes: Active Insurance Policies Plan Name Member ID Group # Subscriber Relationship Effect julio Dates 1 - [facility] [id number] Melina Garza Self 09/17/2013 - Unknown Clinical Notes Includes: Clinical Notes from this encounter No Clinical Notes Recorded
--- OUTSIDE RECORDS SUMMARY | 2025-06-30 11:02 | XMS_ITS | Clinical Summary ---
Author Organization [facility] Address [address] [place] [address] Phone [email or web address] Care Team Providers Care Ramp Flight Attendant Name Role Phone Unavailable Primary Care Provider Unavailabl e Allergies No known active allergies Medications sertraline (ZOLOFT) 25 MG tablet 1 Active fluticasone (FLONASE) 50 MCG/ACT nasal sprayIndication s:Viral sinusitis Administer 1 spray into each nostril 1 (one) time each day. 16 g 1 4 Active loratadine (CLARITIN) 10 MG tabletIndicatio ns:Viral sinusitis TAKE ONE TABELT BY MOUTH DAILY 90 tablet 1 4 Active Active Problems Problem Noted Date Diagnosed Date Chronic constipation 09/17/1998 Generalized anxiety disorder 09/17/1997 Overview (11/02/2020): On meds ~ 11/2019 Resolved Problems Problem Noted Date Diagnosed Date Resolved Date Eustachian tube dysfunction, left 04/29/2018 11/02/2020 Social History Tobacco Use Types Packs/Day Years Used Date Smoking Tobacco: Never Smokeless Tobacco: Never Tobacco Cessation:Counseling Given: Not Answered Intimate Partner Violence Answer Date R ecorded Insults You Not on file 04/14/2022 Threatens You Not on file 04/14/2022 Screams at You Not on file 04/14/2022 Physically Hurt Not on file 04/14/2022 Intimate Partner Violence Score Not on file 04/14/2022 Depression Answer Date Recorded PHQ Total Score Not on file 03/07/2024 Stress Answer Date Recorded Stress in your Life Not on file 07/21/2024 Dealing with Stress 3 07/21/2024 Comments No Sex and Gender Information Value Date Recorded Sex Assigned at Not on file Legal Sex Female 10:00 AM CDT Gender Identity Not on file Sexual Orientation Not on file Last Filed Vital Signs Vital Sign Reading Time Taken Comments Blood Pressure 122/74 11/20/2023 5:11 PM EST Pulse 83 11/20/2023 5:11 PM EST Temperature 35.9 C (96.6 F) 11/20/2023 5:11 PM EST Respiratory Rate 16 11/20/2023 5:11 PM EST Oxygen Saturation 99% 11/20/2023 5:11 PM EST Inhaled Oxygen Concentration - - Weight 68.2 kg (150 lb 6.4 oz) 11/20/2023 5:11 P M EST Height 165.1 cm (5' 5 ) 11/20/2023 5:11 PM EST Body Mass Index 25.03 11/20/2023 5:11 PM EST Plan of Treatment Health Maintenance Due Date Last Done Comments CT Colonography 1978 Cervical Cancer Screening Combo 1978 Colonoscopy 1978 Colorectal Cancer Screening Combo 1978 DNA Cologuard 1978 Dental Cleaning/Exam 1978 FIT or FOBT Test 1978 HIV Screening 1978 HPV / Cotest 1978 Hepatitis C Screening 1978 Pap Testing 1978 Sigmoidoscopy 1978 Annual Preventive Exam 1996 Hep B Infection Screening - Triple Screen 1996 Hepatitis B Immunization (1 of 3 - 19+ 3-dose series) 1997 Tetanus Diphtheria and Pertussis Immunization (1 - Tdap) 1997 Breast Cancer Screening 12/18/2024 12/18/2022 Covid-19 Immunization (2 - season) 2025 11/24/2020 Influenza Immunization (#1) 2025 12/0 02/2020, 10/23/2018 HIB Immunization Aged Out No longer e ligible based on patient's age to complete this topic HPV Immunization Aged Out No longer e ligible based on patient's age to complete this topic Hepatitis A Immunization Aged Out No longer eligible based on patient's age to complete this topic Pneumococcal Immunization Aged Out No longer eligible based on patient's age to complete this topic Polio Immunization Aged Out No longer eligible based on patient's age to complete this topic Insurance OPT OUT PATIENT RESP NB
--- OUTSIDE RECORDS SUMMARY | 2025-06-30 11:02 | XMS_ITS ---
Author Organization [facility] , [facility] Address [address] [place] [address] Phone Care Team Providers Care Rd Mechanical Engineer Name Role Phone Bhaskar Becerra MD Primary Care Provider [phone] Problems Includes: Active, inactive, and resolved Problems No Active Problems Plan of Treatment Findings Encounter Date Ordered intervention and cou nseling on cessation of tobacco use, 3-10 minutes Follow Up with Bhaskar Becerra MD 05/04/2014 Last Documented On 4 10:03AM ; [facility] Ordered intervention and cou nseling on cessation of tobacco use, greater than 10 minutes Follow Up with Bhaskar Becerra MD 05/04/2014 Last Documented On 4 10:03AM ; [facility] Ordered intervention and cou nseling on cessation of tobacco use, 3-10 minutes NEW PATIENT with Bhaskar Becerra MD 03/23/2014 Last Documented On 4 9:26AM ; [facility] Instructions to patient Instructions for patient Last Documented On 4 11:11AM ; [facility] Smoking cessation Last Documented On 4 11:11AM ; [facility] Intervention and counseling on cessation of tobacco use Last Documented On 4 11:11AM ; [facility] Instructions for patient Last Documented On 4 10:19AM ; [facility] Intervention and counseling on cessation of tobacco use Last Documented On 4 10:19AM ; [facility] Education and Decision Aids were provided during visit for: Education and counseling Last Documented On 4 11:11AM ; [facility] Education and counseling Last Documented On 4 10:19AM ; [facility] Assessments Includes: Assessments for all patient encounters No Assessments Recorded Instructions Includes: Instructions for all patient encounters Instructions to patient Instructions for patient Last Documented On 4 11:11AM ; [facility] Smoking cessation Last Documented On 4 11:11AM ; [facility] Intervention and counseling on cessation of tobacco use Last Documented On 4 11:11AM ; [facility] Instructions for patient Last Documented On 4 10:19AM ; [facility] Intervention and counseling on cessation of tobacco use Last Documented On 4 10:19AM ; [facility] Education and Decision Aids were provided during visit for: Education and counseling Last Documented On 4 11:11AM ; [facility] Education and counseling Last Documented On 4 10:19AM ; [facility] Medical Equipment - Implanted Devices Includes: Current and historical Devices No Medical Equipment Recorded Medications Administered Includes: Administered Medications in patient's chart No Administered Medications Recorded Results Includes: Results from 06/30/2024 through 06/30/2025 No Results Recorded For Specified Dates History of Present Illness History of Present Illness not supported for this document type No History of Present Illness Recorded Social History Description Last Updated Tobacco use 05/04/2014 Last Documented On 4 10:03AM ; [facility] Smoking status : Current everyday smoker 05/04/2014 Last Documented On 4 10:03AM ; [facility] 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 Includes: 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 in patient's chart No 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 Recorded Family History Includes: Family History in patient's chart No Family History Recorded Review of Systems Review of Systems not supported for this document type No Review of Systems Recorded Mental Status No Mental Status Recorded Functional Status No Functional Status Recorded Physical Exam Physical Exam not supported for this document type No Physical Exam Recorded Allergies Includes: Active, inactive, and resolved Allergies No Known Allergies Insurance Includes: Active Insurance Policies Plan Name Member ID Group # Subscriber Relationship Effect julio Dates 1 - [facility] [id number] Melina Garza Self 09/17/2013 - Unknown Clinical Notes Includes: Signed Clinical Notes starting from 08/31/2022 No Clinical Notes Recorded
--- OUTSIDE RECORDS SUMMARY | 2025-06-30 11:02 | XMS_ITS | Clinical Summary ---
Author Organization [facility] Address [address] [place] [address] Care Team Providers Care Credit Assessment Analyst Name Role Phone Jorge Sorto Primary Care Provider [phone] Allergies No known active allergies Medications FLUoxetine (PROzac) 10 MG capsuleIndicati ons:Generalized anxiety disorder Take 1 capsule by mouth Daily. 90 capsule 3 04/09/2025 Active Active Problems Problem Noted Date Diagnosed Date Annual IMMIGRATION CONSULTANT exam in 10/15/2018 Overview (12/25/2022): SCREENING TESTS Year 2017 2017 2018 2019 2020 2021 2022 2023 2024 2025 2026 2027 2028 2029 2030 2031 2032 2033 2034 2035 Age PAP - - - - 3 HPV high risk LUIZ [Birads] - - - X [place] 4 [1] ANGI (5 year) Laura Arriaza (lifetime) Colonoscopy DEXA [T-score] Frax [hip/any] Lipids [LDL / HDL / TG] Vitamin D Enter the month test was performed. 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 [employer] Other info: Family history of breast cancer 10/15/2018 Overview (10/15/2018): Normal risk per genetics counseling Chronic constipation 09/17/1998 Generalized anxiety disorder 09/17/1997 Overview (09/16/2020): On meds ~ 11/2019 Encounters Date Type Department Care Team Description 05/15/2025 1:31 PM EDT - 05/15/2025 11:59 PM EDT Hospital Encounter [facility] [address] [address] Jorge Sorto PA Encounter for screening mammogram for malignant neoplasm of breast Discharge Disposition: Home or Self Care 05/15/2025 Travel 04/20/2025 Results Follow-Up [facility] [address] [place] [address] Jorge Sorto PA 04/16/2025 Telephone [facility] [address] [place] [address] Jorge Sorto PA My chart/ Lab review 04/13/2025 Patient rounding (MG only) [facility] [address] [address] Rena Bland 04/09/2025 2:00 PM EDT Office Visit [facility] [address] [place] [address] Jorge Sorto PA Encounter for well adult exam without abnormal findings (Primary Dx); Generalized anxiety disorder; Encounter for lipid screening for cardiovascular disease; Vitamin D insufficiency; History of prediabetes; Encounter for screening mammogram for malignant neoplasm of breast; Screening for thyroid disorder; Anemia, unspecified type; Vasomotor symptoms due to menopause; Need for tetanus booster; Conjunctival hemorrhage of left eye; Left hand pain; Scalp lesion 04/09/2025 Telephone [facility] [address] [place] [address] Jorge Sorto PA Medication, canceled - wrong pharmacy 04/09/2025 Travel from Last 3 Months Immunizations Immunization Administration Dates Next Due Fluzone (or Fluarix & Flulaval for VFC) >6mos Tdap 04/09/2025 Family History 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 Relation Name Comments Arthritis Father [employer] Stroke Father [employer] Breast cancer Maternal Grandmother Alberta Olea DX AGE 60'S-70'S Breast cancer Mother Chula [employer] PRIMARY NHL Ne marcelino genetically tested Cancer Mother Chula [employer]ft Relation Name Status Comments Father [employer] Alive Maternal Grandmother Alberta Olea Mother [employer]ula [employer] Social History Tobacco Use Types Packs/Day Years Used Date Smoking Tobacco: Every Day Cigarettes Tobacco Cessation:Ready to Q uit: Not Asked; Counseling Given: Not Answered Alcohol Use Standard Drinks/Week Comments Yes 4 (1 standard drink = 0.6 oz pur e alcohol) PHQ-2 Answer Date Recorded Patient Health Questionnaire-2 Score 0 04/09/2025 Comments No Sex and Gender Information Value Date Recorded Sex Assigned at Female 04/09/2025 11:56 AM EDT Legal Sex Female 11:55 AM EDT Gender Identity Not on file Sexual Orientation Straight 04/09/2025 11 :56 AM EDT Last Filed Vital Signs Vital Sign Reading Time Taken Comments Blood Pressure 104/64 04/09/2025 1:46 PM EDT Pulse 107 04/09/2025 1:46 PM EDT Temperature 36.2 C (97.1 F) 04/09/2025 1:46 PM EDT Respiratory Rate 14 12/25/2022 3:12 PM EDT Oxygen Saturation 97% 04/09/2025 1:46 PM EDT Inhaled Oxygen Concentration - - Weight 64.9 kg (143 lb) 04/09/2025 1:46 PM EDT Height 165.1 cm (5' 5 ) 04/09/2025 1:46 PM EDT Body Mass Index 23.8 04/09/2025 1:46 PM EDT Plan of Treatment Upcoming Encounters Date Type Department Care Team (Late st Contact Info) Description 04/12/2026 2:30 PM EDT Office Visit [facility] [address] [address] Jorge Sorto PA [address] [address] Health Maintenance Due Date Last Done Comments Pneumococcal Vaccine 0-49 (1 of 2 - PCV) 1997 COLOGUARD 2023 COLON CANCER SCREENING 5 YEA R SIGMOIDOSCOPY 20[address] CT COLONOGRAPHY 2023 FECAL OCCULT BLOOD TEST 2023 FIT Testing (1 year) 2023 Annual Gynecologic Pelvic an d Breast Exam 11/22/2023 11/20/2022, 11/11/2015 INFLUENZA VACCINE 04/17/2025 08/22/2020, 10/23/2018 PAP SMEAR 11/20/2025 11/20/2022, 11/11/2015 ANNUAL PHYSICAL 04/09/2026 04/09/2025 MAMMOGRAM 05/19/2027 05/19/2025, 04/18, 12/18/2022, Additional history exists COLONOSCOPY 07/18/2034 07/18/2024 (Alexsandra ent-Reported (Performed Externally)) COLORECTAL CANCER SCREENING 07/18/2034 TDAP/TD VACCINES (2 - Td or Tdap) 04/09/2035 025 HEPATITIS C SCREENING Completed 04/09/2025 Procedures Procedure Name Priority Date/Time Associated Diagnosis Comments MAMMO SCREENING DIGITAL TOMOSYNTHESIS BILATERAL W CAD Routine 05/15/2025 1:54 PM EDT Encounter for screening mammogram for malignant neoplasm of breast AMBRY GENETIC ASSESSMENT Routine 05/13/2025 2:53 AM EDT CBC AND DIFFERENTIAL Routine 04/09/2025 2:35 PM EDT Encounter for well adult exam without abnormal findings Generalized anxiety disorder Anemia, unspecified type C-REACTIVE PROTEIN Routine 04/09/2025 2: 35 PM EDT SEDIMENTATION RATE Routine 04/09/2025 2: 35 PM EDT URIC ACID Routine 04/09/2025 2:35 PM EDT SARAH Routine 04/09/2025 2:35 PM EDT RHEUMATOID FACTOR, QUANT Routine 04/09/2025 2:35 PM EDT HEPATITIS C ANTIBODY Routine 04/09/2025 2:35 PM EDT Encounter for well adult exam without abnormal findings VITAMIN D,25-HYDROXY Routine 04/09/2025 2:35 PM EDT Encounter for well adult exam without abnormal findings Vitamin D insufficiency MAGNESIUM Routine 04/09/2025 2:35 PM EDT Encounter for well adult exam without abnormal findings Generalized anxiety disorder Anemia, unspecified type FOLATE Routine 04/09/2025 2:35 PM EDT Encounter for well adult exam without abnormal findings Generalized anxiety disorder Anemia, unspecified type VITAMIN B12 Routine 04/09/2025 2:35 PM EDT Encounter for well adult exam without abnormal findings Generalized anxiety disorder Anemia, unspecified type IRON PROFILE Routine 04/09/2025 2:35 PM EDT Encounter for well adult exam without abnormal findings Generalized anxiety disorder Anemia, unspecified type THYROID ANTIBODIES Routine 04/09/2025 2: 35 PM EDT Encounter for well adult exam without abnormal findings Generalized anxiety disorder Screening for thyroid disorder T4, FREE Routine 04/09/2025 2:35 PM EDT Encounter for well adult exam without abnormal findings Generalized anxiety disorder Screening for thyroid disorder TSH Routine 04/09/2025 2:35 PM EDT Encounter for well adult exam without abnormal findings Generalized anxiety disorder Screening for thyroid disorder HEMOGLOBIN A1C Routine 04/09/2025 2:35 PM EDT Encounter for well adult exam without abnormal findings History of prediabetes LIPID PANEL Routine 04/09/2025 2:35 PM EDT Encounter for well adult exam without abnormal findings Encounter for lipid screening for cardiovascular disease COMPREHENSIVE METABOLIC PANEL Routine 04/09/2025 2:35 PM EDT Encounter for well adult exam without abnormal findings Generalized anxiety disorder LIQUID-BASED PAP SMEAR, [facility] ([facility]) Routine 11/20/2022 12:28 PM EST Annual IMMIGRATION CONSULTANT exam w/o problems SCANNED - PAP SMEAR 11/11/2015 from Last 3 Months or Most Recently Relevant to Health Maintenance Results * Mammo Screening Digital Tomosynthesis Bilateral [...] of concern indicated by the patient. A [place] river marker is placed over a visible skin [...] TURNER IMG MAMMOGRAPHY ORDERABLES Fin al Result * [facility] - , (05/13/2025 2:53 AM EDT) [facility] NCCN NCCN not met [facility] Comment:High Risk Cancer Ris k Assessment 05/13/2025 2:53 AM EDT Jorge TURNER GENETIC TESTING Final Result [facility] Rumble
[address] [place] [address], [place] [phone] * Rheumatoid Factor (04/09/2025 2:35 PM EDT) RA Latex Turbid 10.0 <14.0 IU/mL [facility] 04/09/2025 2:35 PM EDT 04/09/2025 Narrative [facility] ([facility]) - 04/10/2025 2:10 PM EDT Performed at: [address] [place] [id number] Monument Letterer: Shai Paulino PhD, Phone: [phone] Patient Fasting: Y Jorge TURNER LAB BLOOD ORDERABLES Final Res ult Performing Organization Address City/[facility] Co de Phone Number [facility] [address] [place] [address], [facility] [address] [place] [address], * Thyroid Antibodies (04/09/2025 2:35 PM EDT) Thyroid Peroxidase Antibody 11 0 - 34 IU/mL [facility] Thyroglobulin Ab <1.0 0.0 - 0.9 IU/mL [facility] Comment: Thyroglobulin Antibody measured by Rene Teresa Methodology It should be noted that the presence of thyroglobulin antibodies may not be pathogenic nor diagnostic, especially at very low levels. The assay rehab therapy manager has found that four percent of individuals without evidence of thyroid disease or autoimmunity will have positive TgAb levels up to 4 IU/mL. Blood 04/09/2025 2:35 PM EDT 04/09/2025 [facility] (AMBULATORY) - 04/10/2025 2:10 PM EDT Performed at: [address] [place] [address] [id number] Monument Letterer: Shai Paulino PhD, Phone: [phone] Patient Fasting: Y Jorge TURNER LAB BLOOD ORDERABLES Final Res ult Performing Organization Address City/[facility]/ZIP Co de Phone Number [facility] [address] [place] [address], [facility] [address] [place] [address], [place] [phone] * Hepatitis C antibody (04/09/2025 2:35 PM EDT) Pathologist [facility] Hep C Virus Ab Non Reactive Non Reactive [facility] Comment: HCV antibody alone does not differentiate between previously resolved infection and active infection. Equivocal and Reactive HCV antibody results should be followed up with an HCV RNA test to support the diagnosis of active HCV infection. Blood 04/09/2025 2:35 PM EDT 04/09/2025 [facility] ([facility]) - 04/10/2025 2:10 PM EDT Performed at: [address] [place] [id number] Monument Letterer: Shai Paulino PhD, Phone: [phone] Patient Fasting: Y Jorge TURNER LAB BLOOD ORDERABLES Final Res ult Performing Organization Address City/[facility]/ZIP Co de Phone Number [facility] [address] [place] [address], [place] [phone] [facility] [address] [place] [address], [place] [phone] * Iron Profile w/o Ferritin (04/09/2025 2:35 PM EDT) Pathologist [facility] TIBC 318 250 - 450 ug/dL [facility] UIBC 238 131 - 425 ug/dL [facility] Iron 80 27 - 159 ug/dL [facility] Iron Saturation 25 15 - 55 % [facility] Blood 04/09/2025 2:35 PM EDT 04/09/2025 Narrative [facility] (AMBULATORY) - 04/10/2025 2:10 PM EDT Performed at: 01 - [facility] [id number] Monument Letterer: Shai Paulino PhD, Phone: [phone] Patient Fasting: Y Jorge TURNER LAB BLOOD ORDERABLES Final Res ult [facility] (AMBULATORY) [address] [place] [address], [place] [phone] [facility] [address] [place] [address], * Vitamin D 25 hydroxy (04/09/2025 2:35 PM EDT) 25 Hydroxy, Vitamin D 80.6 30.0 - 100.0 ng/mL [facility] Comment: Vitamin D deficiency has been defined by the [place] of [employer] and an Endocrine Society practice guideline as a level of serum 25-OH vitamin D less than 20 ng/mL (1,2). The Endocrine Society went on to further define vitamin D insufficiency as a level between 21 and 29 ng/mL (2). 1. IOM ([place] of Medicine). 2010. Dietary reference intakes for calcium and D. Arriaza [place]: The National Academies Press. 2. Norberto MF, Rodger [place], Krista TALBOT, et al. Evaluation, treatment, and prevention of vitamin D deficiency: an Endocrine Society clinical practice guideline. JCEM. 2011 Mar; 96(7):1911-30. Blood 04/09/2025 2:35 PM EDT 04/09/2025 Narrative [facility] (AMBULATORY) - 04/10/2025 2:10 PM EDT Performed at: 01 - [facility] [address] [place], [place] [id number] Monument Letterer: Shai Paulino PhD, Phone: [phone] Patient Fasting: Y Jorge TURNER LAB BLOOD ORDERABLES Final Res ult Performing Organization Address [facility] Co de Phone Number [facility] (AMBULATORY) [address] [place] [address], [facility] [address] [place] [address], * Sedimentation Rate (04/09/2025 2:35 PM EDT) Pathologist [facility] Sed Rate 9 0 - 32 mm/hr [facility] 04/09/2025 2:35 PM EDT 04/09/2025 Narrative [facility] (AMBULATORY) - 04/10/2025 2:10 PM EDT Performed at: 01 - [facility] [address] [place] [id number] Monument Letterer: Shai Paulino PhD, Phone: [phone] Patient Fasting: Y Jorge TURNER LAB BLOOD ORDERABLES Final Res ult Performing Organization Address [facility] Co de Phone Number [facility] (AMBULATORY) [address] [place] [address], [place] [phone] [facility] [address] [place] [address], [place] [phone] * (ABNORMAL) CBC w AUTO Differential (04/09/2025 2:35 PM EDT) [facility] WBC 5.8 3.4 - 10.8 x10E3/uL [facility] RBC 4.15 3.77 - 5.28 x10E6/uL [facility] Hemoglobin 13.4 11.1 - 15.9 g/dL [facility] Hematocrit 41.4 34.0 - 46.6 % [facility] MCV 100(H) 79 - 97 fL [facility] MCH 32.3 26.6 - 33.0 pg [facility] MCHC 32.4 31.5 - 35.7 g/dL [facility] RDW 12.1 11.7 - 15.4 % [facility] Platelets 360 150 - 450 x10E3/uL [facility] Neutrophil Rel % 47 Not Estab. % [facility] Lymphocyte Rel % 38 Not Estab. % [facility] Monocyte Rel % 9 Not Estab. % [facility] Eosinophil Rel % 5 Not Estab. % [facility] Basophil Rel % 1 Not Estab. % [facility] Neutrophils Absolute 2.8 1.4 - 7.0 x10E3/uL [facility] Lymphocytes Absolute 2.2 0.7 - 3.1 x10E3/uL [facility] Monocytes Absolute 0.5 0.1 - 0.9 x10E3/uL [facility] Eosinophils Absolute 0.3 0.0 - 0.4 x10E3/uL [facility] Basophils Absolute 0.1 0.0 - 0.2 x10E3/uL [facility] Immature Granulocyte Rel % 0 Not Estab. % [facility] Immature Grans Absolute 0.0 0.0 - 0.1 x10E3/uL [facility] Blood 04/09/2025 2:35 PM EDT 04/09/2025 Narrative [facility] ([facility]) - 04/10/2025 2:10 PM EDT Performed at: [address] [place] [id number] Monument Letterer: Shai Paulino PhD, Phone: [phone] Patient Fasting: Y Jorge TURNER LAB BLOOD ORDERABLES Final Res ult [facility] ([facility]BUL[facility]) [address] [place] [address], [facility] [address] [place] [address], * C-reactive Protein (04/09/2025 2:35 PM EDT) [facility] C-Reactive Protein 1 0 - 10 mg/L [facility] 04/09/2025 2:35 PM EDT 04/09/2025 Narrative [facility] ([facility]) - 04/10/2025 2:10 PM EDT Performed at: [address] [place] [address] [place] [id number] Monument Letterer: Shai Paulino PhD, Phone: [phone] Patient Fasting: Y Jorge TURNER LAB BLOOD ORDERABLES Final Res ult Performing Organization Address [facility] Co de Phone Number [facility] (AMBULATORY) [address] [place] [address], [facility] [address] [place] [address], * SARAH (04/09/2025 2:35 PM EDT) Pathologist [facility] SARAH Direct Negative Negative [facility] 04/09/2025 2:35 PM EDT 04/09/2025 Narrative [facility] ([facility]) - 04/10/2025 2:10 PM EDT Performed at: [address] [place] [address] [place] [id number] Monument Letterer: Shai Paulino PhD, Phone: [phone] Patient Fasting: Y Jorge TURNER LAB BLOOD ORDERABLES Final Res ult Performing Organization Address [facility] Co de Phone Number [facility] (AMBULATORY) [address] [place] [address], [facility] [address] [place] [address], * Uric Acid (04/09/2025 2:35 PM EDT) Pathologist [facility] Uric Acid 4.3 2.6 - 6.2 mg/dL [facility] Comment:Therapeutic target f or gout patients: <6.0 04/09/2025 2:35 PM EDT 04/09/2025 Narrative [facility] ([facility]) - 04/10/2025 2:10 PM EDT Performed at: [address] [place], [place] [address] [address] [place], [place] [id number] Monument Letterer: Shai Paulion PhD, Phone: [phone] Patient Fasting: Y Jorge TURNER LAB BLOOD ORDERABLES Final Res ult Performing Organization Address [facility]/ZIP Co de Phone Number [facility] (AMBULATORY) [address] [place] [address], [facility] [address] [place] [address], [place] [phone] * TSH (04/09/2025 2:35 PM EDT) TSH 1.340 0.450 - 4.500 uIU/mL [facility] Blood 04/09/2025 2:35 PM EDT 04/09/2025 Narrative [facility] ([facility]) - 04/10/2025 2:10 PM EDT Performed at: [address] [id number] Monument Letterer: Shai Paulino PhD, Phone: [phone] Patient Fasting: Y Jorge TURNER LAB BLOOD ORDERABLES Final Res ult Performing Organization Address [facility] Co de Phone Number [facility] (AMBULATORY) [address] [place] [address], [facility] [address] [place] [address], * T4, free (04/09/2025 2:35 PM EDT) Free T4 0.98 0.82 - 1.77 ng/dL [facility] Blood 04/09/2025 2:35 PM EDT 04/09/2025 Narrative [facility] ([facility]) - 04/10/2025 2:10 PM EDT Performed at: [address] [id number] Monument Letterer: Shai Paulino PhD, Phone: [phone] Patient Fasting: Y Jorge TURNER LAB BLOOD ORDERABLES Final Res ult [facility] ([facility]) [address] [place] [address], [place] [phone] [facility] [address] [place] [address], [place] [phone] * Magnesium (04/09/2025 2:35 PM EDT) [facility] Magnesium 2.2 1.6 - 2.3 mg/dL [facility] Blood 04/09/2025 2:35 PM EDT 04/09/2025 Narrative [facility] (AMBULATORY) - 04/10/2025 2:10 PM EDT Performed at: [address] [id number] Monument Letterer: Shai Paulino PhD, Phone: [phone] Patient Fasting: Y Jorge TURNER LAB BLOOD ORDERABLES Final Res ult Performing Organization Address City/[facility]/ZIP Co de Phone Number [facility] [address] [place] [address], [place] [phone] [facility] [address] [place] [address], [place] [phone] * Hemoglobin A1c (04/09/2025 2:35 PM EDT) [facility] Hemoglobin A1C 5.1 4.8 - 5.6 % [facility] Comment: Prediabetes: 5.7 - 6.4 Diabetes: >6.4 Glycemic control for adults with diabetes: <7.0 Blood 04/09/2025 2:35 PM EDT 04/09/2025 [facility] (AMBULATORY) - 04/10/2025 2:10 PM EDT Performed at: [facility] [address] [place] [id number] Monument Letterer: Shai Paulino PhD, Phone: [phone] Patient Fasting: Y us Jorge TURNER LAB BLOOD ORDERABLES Final Res ult Performing Organization Address City/[facility]/ZIP Co de Phone Number [facility] (AMBULATORY) [address] [place] [address], [place] [phone] [facility] [address] [place] [address], [place] [phone] * Folate (04/09/2025 2:35 PM EDT) [facility] Folate 18.4 >3.0 ng/mL [facility] Comment: A serum folate concentration of less than 3.1 ng/mL is considered to represent clinical deficiency. Blood 04/09/2025 2:35 PM EDT 04/09/2025 Narrative [facility] (AMBULATORY) - 04/10/2025 2:10 PM EDT Performed at: [address] [id number] Monument Letterer: Shai Paulino PhD, Phone: [phone] Patient Fasting: Y us Jorge TURNER LAB BLOOD ORDERABLES Final Res ult Performing Organization Address City/[facility] Co de Phone Number [facility] [address] [place] [address], [place] [phone] [facility] [address] [place] [address], [place] [phone] * Vitamin B12 (04/09/2025 2:35 PM EDT) [facility] Vitamin B-12 1,155 232 - 1,245 pg/mL [facility] Blood 04/09/2025 2:35 PM EDT 04/09/2025 Narrative [facility] (AMBULATORY) - 04/10/2025 2:10 PM EDT Performed at: [address] [place] [id number] Monument Letterer: Shai Paulino PhD, Phone: [phone] Patient Fasting: Y us Jorge TURNER LAB BLOOD ORDERABLES Final Res ult Performing Organization Address City/[facility]/ZIP Co de Phone Number [facility] [address] [place] [address], [facility] [address] [place] [address], * (ABNORMAL) Lipid Panel (04/09/2025 2:35 PM EDT) Total Cholesterol 243(H) 100 - 199 mg/dL [facility] Triglycerides 107 0 - 149 mg/dL [facility] HDL Cholesterol 72 >39 mg/dL [facility] VLDL Cholesterol Brayden 19 5 - 40 mg/dL [facility] LDL Chol Calc (NIH) 152(H) 0 - 99 mg/dL [facility] Blood 04/09/2025 2:35 PM EDT 04/09/2025 Narrative [facility] - 04/10/2025 2:10 PM EDT Performed at: 01 - [facility] [id number] Monument Letterer: Shai Paulino PhD, Phone: [phone] Patient Fasting: Y Jorge TURNER LAB BLOOD ORDERABLES Final Res ult Performing Organization Address City/[facility]/ZIP Co de Phone Number [facility] (AMBULATORY) [address] [place] [address], [facility] [address] [place] [address], * Comprehensive metabolic panel (04/09/2025 2:35 PM EDT) Glucose 82 70 - 99 mg/dL [facility] BUN 8 6 - 24 mg/dL [facility] Creatinine 0.83 0.57 - 1.00 mg/dL [facility] EGFR Result 88 >59 mL/min/1.7 3 [facility] BUN/Creatinine Ratio 10 9 - 23 [facility] Sodium 142 134 - 144 mmol/L [facility] Potassium 4.5 3.5 - 5.2 mmol/L [facility] Chloride 105 96 - 106 mmol/L [facility] Total CO2 21 20 - 29 mmol/L [facility] Calcium 9.7 8.7 - 10.2 mg/dL [facility] Total Protein 7.0 6.0 - 8.5 g/dL [facility] Albumin 4.7 3.9 - 4.9 g/dL [facility] Globulin 2.3 1.5 - 4.5 g/dL [facility] Total Bilirubin 0.2 0.0 - 1.2 mg/dL [facility] Alkaline Phosphatase 100 44 - 121 IU/L [facility] AST (SGOT) 25 0 - 40 IU/L [facility] ALT (SGPT) 28 0 - 32 IU/L [facility] Blood 04/09/2025 2:35 PM EDT 04/09/2025 Narrative [facility] (AMBULATORY) - 04/10/2025 2:10 PM EDT Performed at: [address] [place] [id number] Monument Letterer: Shai Paulino PhD, Phone: [phone] Patient Fasting: Y Jorge TURNER LAB BLOOD ORDERABLES Final Res ult [facility] [address] [place] [address], [place] [phone] [facility] [address] [place] [address], * LIQUID-BASED PAP SMEAR, [facility]) (11/20/2022 12:28 PM EST) Reference Lab Report [facility] [address] [place] [address] or [phone] Jay Santiago M.D., Organizational Effectiveness Director PATIENT NAME [facility]. [id number] AGE SEX SSN CLIENT REF # SINAI LEACH MD [id number] 1980 [id number] SINAI LEACH MD REQUESTING MKrish. ATTENDING M.D. COPY TO. [address] [facility] [address] [place] [address] DATE COLLECTED DATE RECEIVED DATE REPORTED 11/20/2022 11/20/2022 11/22/2022 ThinPrep Pap with Cytyc Imaging DIAGNOSIS: Negative for intraepithelial lesion or malignancy Multiple factors can influence accuracy of Pap tests; therefore, screening at regular intervals is necessary for early cancer detection. SPECIMEN ADEQUACY: SATISFACTORY FOR EVALUATION Transformation zone is present. SOURCE OF SPECIMEN: CERVICAL SLIDES: 1 CLINICAL HISTORY: Well woman exam Amenorrhea Menopausal COMPUTER INSTRUCTOR: CHARLES LOVE (ASCP) CPT CODES: 19920 11/22/2022 8:45 AM EST [facility] ThinPrep Vial Collection / Unknown 11/20/2022 12:28 PM EST 11/20/2022 12:28 PM EST Sinai Leach MD PATHOLOGY/CYTOLOGY ORDERAB LES Final Result [facility]
[address] [place] [address], * SCANNED - PAP SMEAR (11/11/2015) [facility] CHART REVIEW TABS Final Re sult from Last 3 Months or Most Recently Relevant to [place] [address] [facility] PPO Care Teams Credit Assessment Analyst Relationship Specialty Start Date End Date Jorge Sorto PA [address] [place] [address] PCP - General Family Medicine 04/09/25
--- OUTSIDE RECORDS SUMMARY | 2025-06-30 11:02 | XMS_ITS ---
Care Plan - [facility], [facility] Created on: June 30, 2025 Melina Garza : 1980 Sex: Female Author Organization [facility] , [facility] Address [address] [place] [address] Phone Care Team Providers Care Fleet Technician Name Role Phone Hernan ROE, Bhaskar Cartagena Primary Care Provider [phone]
--- NOTE | 2025-06-30 11:04 | XR_ITS ---
FINAL REPORT CLINICAL HISTORY: left wrist pain after hitting hand/wrist FINDINGS: AP, oblique, and lateral views of the left wrist were obtained. There is no prior exam for comparison. There is no acute fracture or dislocation. The joint spaces are preserved. The soft tissues are normal. IMPRESSION: No acute osseous abnormality of the left wrist. Reviewed, Interpreted and Dictated by Citlali Lopez MD Transcribed by Constanza Potter Authenticated and [facility]
== END 2025-06-30 23:59 | disposition home or self-care (01) ==
LOC: RAD 11:00
PROVIDERS: Visit Provider Nurse Practitioner Family
DX: M25.532 Pain in left wrist (principal); M79.642 Pain in left hand; W22.8XXA Striking against or struck by other objects, initial encounter
CPT/HCPCS: 73110